=== PATIENT | female | born 1975 | race Caucasian/White ===

== ENCOUNTER 2023-10-13 13:27 | Outpatient (OUT) | payer OTHER, SELFPAY ==
--- NOTE | 2023-10-13 15:42 | P.CN_ITS ---
Consult Note: HPI Data of Consult Patient: new to practice Consult date: 10/13/23 Requesting Physician: Santy Quiros MD Primary Care Provider: LES ABDI Consult Narrative Reason for consult: midback pain Narrative: 48yof who presents for evaluation. worsening midback pain that began acutely while doing her hair at home. history of scoliotic bassam placement as youth. recent imaging suggests fracture of bassam around t6-7 area. tender to palpation over this region. has been taking various pain medications for about a year now, without significant benefit. was engaged in physical therapy, but this was discontinued by therapist due to acute worsening of pain. otherwise denies adverse med side effects. cc:: CC: Santy Quiros MD Review of Systems ROS Status of ROS 10 or more systems reviewed and unremark able except as noted in history and below Exam Narrative Exam Narrative: Psych-alert and oriented x 3. Attentive and appropriate, constitutionally normal, displays normal mood and affect per situation.? There are no obvious deficits in memory, reasoning, or intellect.? Skin-no obvious rashes, bruising, erythema noted to the patient's area of pain. Extremities- extremities are warm with minimal edema and palpable pulses. Thoracic - tenderness to palpation noted in the thoracic spine and paraspinal musculature.?Radiating pain laterally along T6, T7 dermatomal distribution. Pain is elicited with extension, and lateral rotation of the lumbar spine. Range of motion is slightly diminished with these motions due to pain. Coordination remains intact.? Gait remains non-antalgic. Assessment and Plan Assessment and Plan (1) Thoracic radiculopathy: (2) Myofascial pain: Plan 48yof who presents for evaluation. failed conservative measures, as noted. imaging reviewed. given symptoms and imaging, prudent to attempt bilateral T6-7 tfesi under fluoscopic guidance. she is in agreement. medications reviewed, no changes. will continue meds from her pcp. follow up after procedure.
== END 2023-10-13 13:28 | disposition home or self-care (01) ==
LOC: PM 13:27
PROVIDERS: PCP Family Medicine; Visit Provider Anesthesiology
DX: M54.14 Radiculopathy, thoracic region (principal); M79.18 Myalgia, other site
CPT/HCPCS: G0463

== ENCOUNTER 2023-10-15 11:26 | Outpatient (OUT) | payer OTHER, SELFPAY ==
--- NOTE | 2023-10-15 11:29 | MM_ITS ---
Patient Name: LUCILLE BAILEY MR#: [id number] : 1975 Exam Date: 10/15/2023 Ordering Doctor: DR LES ABDI M.D. RADIOLOGY REPORT PROCEDURE: MM TOMOSYNTHESIS SCREENING BI COMPARISON: MG MAMM RT DIAG W CAD, 08/26/2019. MG MAMM RT DIAG FU, 01/28/2019. MG MAMM SCREEN NORMA W CAD, 01/25/2019. INDICATIONS: screening Calculator Name NCI Breast Cancer Risk Assessment Tool 5 Year Breast Cancer Risk 0.90% Lifetime Breast Cancer Risk 8.60% Personal Breast Cancer No Personal Ovarian Cancer No Treatments None Family Cancers Cousin-paternal with breast cancer at age 36; Aunt-maternal with breast cancer at age 58; Father with bladder cancer at age 58. LOCATION: [facility] BREAST COMPOSITION: The breasts are heterogeneously dense,which may obscure small masses. FINDINGS: DIAGNOSTIC CATEGORY 1--NEGATIVE. RIGHT BREAST: No significant suspicious finding. No significant change has occurred. LEFT BREAST: No significant suspicious finding. No significant change has occurred. RECOMMENDATIONS: ROUTINE MAMMOGRAM AND CLINICAL EVALUATION IN 12 MONTHS. PLEASE NOTE: A NORMAL MAMMOGRAM DOES NOT EXCLUDE THE POSSIBILITY OF BREAST CANCER. A CLINICALLY SUSPICIOUS PALPABLE LUMP SHOULD BE BIOPSIED. Dictated by: Honorio Amos M.D. on 10/16/2023 at 15:54 Approved by: Honorio Amos M.D. on 10/16/2023 at 15:57
== END 2023-10-15 11:27 | disposition home or self-care (01) ==
LOC: MAMMO 11:26
PROVIDERS: PCP Family Medicine; Visit Provider Family Medicine
DX: Z12.31 Encounter for screening mammogram for malignant neoplasm of breast (principal); Z80.3 Family history of malignant neoplasm of breast; Z80.52 Family history of malignant neoplasm of bladder
CPT/HCPCS: 77063; 77067

== ENCOUNTER 2023-11-03 11:34 | Outpatient (OUT) | payer OTHER, SELFPAY ==
--- OUTSIDE RECORDS SUMMARY | 2023-11-03 11:56 | XMS_ITS | CCD ---
Author Organization [facility] Care Team Providers Care Tank Car Repairer Name Role Phone FADY ABDI Admitting Unavailable FADY ABDI Attending Unavailable FADY ABDI Primary Care Unavailable FADY ABDI Consulting Unavailable HONORIO AMOS Consulting Unavailable TAWANA KELLEY Admitting Unavailable TAWANA KELLEY Attending Unavailable TAWANA KELLEY Consulting Unavailable MD Fady Abdi Primary Care Provider DO Jack Noel Emergency Provider Unavai lable Unavailable Primary Care Provider UnavailFady Joel Primary Care Unavailable aJck Noel Attending Unavailable Jack Noel Admitting Unavailable Unavailable Primary Care Provider Unavailabl e PELLE, RAMIRO W Referring Unavailable PELLE, RAMIRO W Referring Unavailable STACY HWANG Referring Unavailable KARLA FERNANDEZINIC Attending Unavailable FADY ABDI Referring Unavailable FADY ABDI Attending Unavailable FADY ABDI Attending Unavailable Ishaan VELAZCO, Santy Longo Attending Unavailable Allergies Allergy Classification Reported Allergen(s) Allergy Type Date of Onset Reaction(s) Facility (3 sources) egg extract; Translations: [EGG] Drug Allergy 6 Hives [facility] Repository (3 sources) Latex; Translations: [LATEX] Drug allergy (disorder) 6 Rash [facility] Repository (1 source) Meperidine Drug Allergy 6 [facility] Repository (5 sources) Meperidine; Translations: [meperidine] Drug Allergy 6 Swelling, Other: See Comments [facility] (1 source) egg extract Drug Allergy 2 [facility] (1 source) Latex Drug allergy (disorder) 2 [facility] Repository (2 sources) egg extract Drug Allergy 6 Hives, Unknown, Vomiting [facility] (2 sources) Latex Drug Allergy 6 Itching, Rash, Swelling, Other: See Comments [facility] (3 sources) Atropine-Demerol ; Translations: [ATROPINE-DEMERO L] Drug Allergy 2 Rash, Swelling [facility] Medications Current Medications Medication Drug Class(es) Dates Sig (Normalized) Sig (Original) predniSONE 5 mg oral tablet (1 source) Start: 04-08-2022 Prednisone Active 0 PO .COMPLEX April 08, 2022 12:00am prednisone 5 mg: take 8 tablets (40 mg) on Day 1; 7 tablets (35 mg) on Day 2; then decrease by 1 tablet every day until finished Completed/Discontinued Medications Medication Drug Class(es) Dates Sig (Normalized) Sig (Original) acetaminophen 325 mg / oxyCODONE hydrochloride 7.5 mg oral tablet (2 sources) Opioid Agonist Start: 05-06-2022 take 1 tablet by mouth every six hours as needed oxyCODONE-acetamino phen (PERCOCET) 7.5-325 mg tablet Take 1 tablet by mouth every 6 hours as needed. 0 05/06/2022 Active Comment on above: Take 1 tablet by liana every 6 hours as needed. ALPRAZolam 0.5 mg oral tablet (2 sources) Benzodiazepine Start: 04-15-2022 take 1 tablet by mouth every twelve hours as needed ALPRAZolam (XANAX) 0.5 mg tablet Take 0.5 mg by mouth twice daily as needed. 0 04/15/2022 Active Comment on above: Take 0.5 mg by mouth twice daily as needed. cyclobenzaprine hydrochloride 5 mg oral tablet (3 sources) Muscle Relaxant Start: 04-08-2022 cyclobenzaprine (FLEXERIL) 5 mg tablet Take 5 mg by mouth as needed. 0 04/08/2022 Active Comment on above: Take 5 mg by mouth a s needed. gabapentin 100 mg oral capsule (2 sources) Anti-epileptic Agent Start: 04-15-2022 take 1 capsule by mouth three times daily gabapentin (NEURONTIN) 100 mg capsule Take 100 mg by mouth three times daily. 0 04/15/2022 Active Comment on above: Take 100 mg by mouth three times daily. rizatriptan 10 mg oral tablet (2 sources) Serotonin-1b and Serotonin-1d Receptor Agonist Start: 04-06-2019 rizatriptan (MAXALT) 10 mg tablet Problems Active Problems Problem Classification Problem Date Documented Date Episodic/Chronic Spondylosis; intervertebral disc disorders; other back problems (2 sources) Degeneration of lumbar intervertebral disc; Translations: [Other intervertebral disc degeneration, lumbar region] Onset: 05-14-2022 Chronic Spondylosis; intervertebral disc disorders; other back problems (5 sources) Backache; Translations: [Dorsalgia, unspecified] Onset: 04-08-2022 04-08-2022 Episodic Substance-related disorders (1 source) Nicotine dependence, unspecified, uncomplicated; Translations: [NICOTINE DEPEND UNS UNCOMPLICATED] Onset: 08-27-2019 Chronic Unclassified (2 sources) Equipment error/failure; Translations: [Hardware failure] 04-08-2022 Past or Other Problems Problem Classification Problem Date Documented Da te Episodic/Chronic Nonmalignant breast conditions (4 sources) Other signs and symptoms in breast; Translations: [OTHER SIGNS AND SYMPTOMS IN BREAST] Onset: 08-26-2019 Episodic Results Test Name Value Interpretation Reference Range Facility [facility] 06-20-2022 [facility] Telephone (NIQ) LUCILLE CARCAMO ([id number]) 1975 F Date Time Provider Department 06/20/22 RAMIRO FERNANDEZ NI During your visit today, we recorded the following information about you: Amber Whelan Director Of Operations For Therapy 06/20/2022 3:02 PM Signed Patient calling for MRI AND XR results. Patient informed that it can take 7 business days to review and that someone from the clinical team will call with results once reviewed. call back [phone] Verified imaging and reports were received. Forwarded to team for review. Amber Whelan Director Of Operations For Therapy Sonja Vargas Director Franchise Sales 06/26/2022 1:34 PM Signed pt following up on 06/20 message about results. Call back: [phone] Kingston Moya RN 06/26/2022 3:19 PM Signed Neuro SPINE CARE COORDINATION QUICK NOTE Returned call and left message for pt to call back. Dr Fernandez is out of the office this week. Image review will be competed upon his return next week. Maddi Wood PA-C 07/09/2022 7:42 AM Signed Addended by: MADDI WOOD on: 07/09/2022 07:42 AM Modules accepted: Orders Kingston Moya RN 07/09/2022 8:56 AM Signed Neuro SPINE CARE COORDINATION QUICK NOTE Called patient to provide image review: MRI looks ok. Dr. Fernandez would like her to get an EMG. If it shows any radiculopathy that matches her symptoms, would consider and injection depending on EMG results. overall the imaging looks ok Patient voiced understanding. Advised EMG order was placed and she can call to schedule. She had no further questions. Allergies As of Date: 06/20/2022 Noted Allergy Reaction ATROPINE-DEMEROL 05/14/2022 2 - Rash 7 - Swelling EGG 10/05/2015 4 - Hives 16 - Unknown 11 - Vomiting LATEX 10/05/2015 9 - Itching 2 - Rash 7 - Swelling 14 - Other: See Comments MEPERIDINE 10/05/2015 7 - Swelling 14 - Other: See Comments Date Reviewed: 05/14/2022 Reviewed by: Noemi Morgan LPN - Fully Assessed Reason for Visit: Results [95] Primary Visit Diagnosis:Cervical disc disorder with radiculopathy [M50.10] Order(s):EMG(NEURO/N I) [[id number]] Order #: [id number]: 1 FUTURE Prescriptions as of 07/09/2022 - ALPRAZolam (XANAX) 0.5 mg tablet Take 0.5 mg by mouth twice daily as needed. - cyclobenzaprine (FLEXERIL) 5 mg tablet Take 5 mg by mouth as needed. - gabapentin (NEURONTIN) 100 mg capsule Take 100 mg by mouth three times daily. - oxyCODONE-acetaminop hen (PERCOCET) 7.5-325 mg tablet Take 1 tablet by mouth every 6 hours as needed. - rizatriptan (MAXALT) 10 mg tablet Problem List As Of Date: 06/20/2022 (None) Encounter Status:Closed by KINGSTON MOYA on 06/26/[address] [facility] 05-29-2022 [facility] HNO ID: [id number] Author: Phil Murdock Service: Radiology Author Type: Technologist Type: Allied [facility] Filed: 05/29/2022 6:01 PM Note Text: Radiology Service Progress Note PATIENT NAME: Lucille Carcamo DATE OF SERVICE: May 29, 2022 TIME: 5:50 PM PATIENT IDENTITY VERIFICATION COMPLETED USING TWO (2) IDENTIFIERS: Name and Date of confirmed by patient verbally and Name and Date of confirmed by identification band. FALL SCREENING: Has the patient had 2 falls in the last year or 1 fall with injury or currently using an Ambulatory Assistive Device (Walker, Cane, Wheelchair, Crutches, etc.)? No PATIENT GENDER DATA: Female. status: : No status: NO. PATIENT RELEVANT IMPLANT DATA REVIEWED: Yes RADIOLOGY DEPARTMENT: MR; Exam(s) Completed: Spine: Cervical spine PERIPHERAL IV DATA: Not applicable SIGNED BY: Phil Murdock May 29, 2022 5:50 PM [facility] MRI CERVICAL SPINE WO IVCONo n 05-29-2022 MRI CERVICAL SPINE WO IVCON * * *Final Report* * * DATE OF EXAM: May 29 2022 6:09PM [facility] 0297 - MRI CERVICAL SPINE WO IVCON / PROCEDURE REASON: Spinal stenosis of cervical region * * * * Physician Interpretation * * * * EXAMINATION: MRI CERVICAL SPINE WO IVCON CLINICAL HISTORY: Stenosis TECHNIQUE: Routine cervical spine MR protocol without gadolinium. MQ: [id number] COMPARISON: None. RESULT: Counting reference: Craniocervical junction. Anatomic Variants: None. Localizer images: No additional findings Alignment: Alignment is anatomic. Craniocervical junction: Craniocervical junction is normal. Cord: The visualized cord is within normal limits of signal intensity and morphology. Bone marrow signal/fracture: No evidence of pathologic marrow infiltration. No evidence of prior fracture. Cervical soft tissues: The paraspinal soft tissues are within normal limits. C2-C3: Canal and foramina are patent. C3-C4: Canal and foramina are patent. C4-C5: Canal is patent, mild right foraminal narrowing C5-C6: Canal is patent, mild bilateral foraminal narrowing C6-C7: Canal and foramina are patent. C7-T1: Canal and foramina are patent. IMPRESSION: 1. NO SIGNIFICANT CENTRAL OR FORAMINAL NARROWING 2. NO SUSPICIOUS CORD SIGNAL ABNORMALITY Anatomic Variant: None. Assume 7 cervical vertebrae with counting from the craniocervical junction. Brick Kiln Burner: [facility] Transcribe Date/Time: May 29 2022 9:21P Dictated by : ARMEN MELÉNDEZ MD This examination was interpreted and the report reviewed and electronically signed by: ARMEN MELÉNDEZ MD on May 29 2022 9:22PM EST [id number] [facility] XR CERVICAL 4V AP/LAT/FLX/EX Ton 05-29-2022 XR CERVICAL 4V AP/LAT/FLX/EXT * * *Final Report* * * DATE OF EXAM: May 29 2022 5:37PM [facility] [id number] - XR CERVICAL 4V AP/LAT/FLX/EXT / PROCEDURE REASON: Spinal stenosis of cervical region * * * * Physician Interpretation * * * * EXAMINATION: XR CERVICAL 4V AP/LAT/FLX/EXT PATIENT/TECHNOLOGIST PROVIDED HISTORY: The patient is having pain. CLINICAL INFORMATION ( PROVIDED BY ORDERING CLINICIAN) : Spinal stenosis of cervical region TECHNIQUE: XR CERVICAL 4V AP/LAT/FLX/EXT Laterality: NOT APPLICABLE Number of different views (projections): 4 M: XB_1 COMPARISON: None RESULT: Counting reference: Craniocervical junction. Straightening of the normal cervical lordosis with 1 to 2 mm retrolisthesis at C2-3 which reduces with extension and does not change with flexion. Vertebral body heights and disc spaces are preserved. Facet joints are maintained. No other significant abnormality. IMPRESSION: No acute osseous findings. Additional findings as described. Brick Kiln Burner: [facility] Transcribe Date/Time: May 30 2022 8:22A Dictated by : DAIN MARTINEZ MD This examination was interpreted and the report reviewed and electronically signed by: DAIN MARTINEZ MD on May 30 2022 8:24AM EST [id number] [facility] CNOVon 05-14-2022 CNOV Office Visit (SPNSMN) LUCILLE CARCAMO ([id number]) 1975 F Date Time Provider Department 05/14/22 9:10 AM RAMIRO FERNANDEZ During your visit today, we recorded the following information about you: Pulse Respiration Blood pressure Weight 76/minute 13/minute 110/78 79.8 kg Height 1.6 m Ramiro Fernandez MD 05/14/2022 12:25 PM Signed SPINE SURGERY NEW PATIENT Staff note: Interscapular pain of one month duration, no inciting injury, left side, some left arm numbness Remote history of AIS surgery in 80s Gomez fracture on left noted on recent xr CT scan demonstrates well healed fusion Examination Positive hoffmans bilaterally Positive spurlings 5/5 motor strength Plan MRI cervical spine Xr cervical spine I don't think the gomez fracture is the issue, she has a history c/w cervical radiculopathy FU thereafter I had a long discussion with the patient in the office today, they had many appropriate questions, all were answered to their satisfaction, no guarantees were offer nor implied in our discussion. Ramiro Fernandez MD PCP: No primary care provider on file. REFERRING PROVIDER: n/a SUBJECTIVE HISTORY OF PRESENT ILLNESS: Lucille Carcamo is a 46 year old female presenting with her spouse and son. CHIEF COMPLAINT: mid back pain PRECIPITATING EVENT: None DURATION OF SYMPTOMS: one month ago curling her hair and felt a sharp shooting burning pain in her mid back. Has tried ibuprofen but it does not touch the pain but makes it tolerable, uses heat as well. Went to PCP who took xray PAIN EVALUATION 05/14/2022 0832 Pain Level: 9 Pain Location: Back-Upper Description: Burning;Stabbing Duration Amount of Time: 1 Duration Units: Months Frequency: Continuous Intervention/Comfort measure: Medication;Heat Pain Radiation: central mid back between shoulder blades Aggravating Factors: Lifting, Pushing, Standing, Walking Alleviating Factors: None Pain Ratio: mid upper back pain only AMBULATORY STATUS: Independent Community Distances PREVIOUS CONSERVATIVE TREATMENTS: Percocet Oral Steroids MR NSAIDs Gabapentin PREVIOUS SPINAL SURGERY: Prior surgery 1980s There is no problem list on file for this patient. No past medical history on file. No past surgical history on file. No family history on file. Social History Tobacco Use Smoking status: Every Day Types: Cigarettes Smokeless tobacco: Never Substance Use Topics Alcohol use: Never ALLERGIES Allergen Reactions Atropine-Demerol Rash, Swelling Egg Hives, Unknown, Vomiting Latex Itching, Rash, Swelling, Other: See Comments Meperidine Swelling, Other: See Comments MEDICATIONS: ALPRAZolam (XANAX) 0.5 mg tablet Take 0.5 mg by mouth twice daily as needed. cyclobenzaprine (FLEXERIL) 5 mg tablet Take 5 mg by mouth as needed. gabapentin (NEURONTIN) 100 mg capsule Take 100 mg by mouth three times daily. oxyCODONE-acetaminop hen (PERCOCET) 7.5-325 mg tablet Take 1 tablet by mouth every 6 hours as needed. rizatriptan (MAXALT) 10 mg tablet REVIEW OF SYSTEMS: GENERAL: No weight loss or malaise MUSCULOSKELETAL: Negative for joint pain, swelling or muscle pain NEURO: No history of headaches, syncope, paralysis, seizures or tremors Patient Entered Questionnaires Spine Questions 05/13/2022 Pain Location: Upper back/torso Pain Duration: 1-3 months Symptoms from neck/cervical spine: Yes Employment Status: Disabled due to back pain, permanently or temporarily Off work 1 month or more due to back/neck pain: Yes Applied for/receive disability/WC due to low back/neck pain No Involved in law suit/legal claim: No Neck Questionnaires 05/13/2022 [place]zel Modified ALEXIS Score 14 (A lower score indicates increased pain and issues.) PROMIS Score Percentiles Physical Health 05/13/2022 Physical Function Percentile 2 Sleep Percentile 10 Fatigue Percentile 50 Pain Interference Percentile 0 PROMIS SOCIAL ROLE SCORE 05/13/2022 Social Role Satisfaction Percentile 1 PROMIS Global Health Scale 05/13/2022 Physical Health Percentile 4 Mental Health Percentile 5 Percentiles provide an indication of how the patient's score ranks in relation to the general population. Higher percentile rankings indicate better function/quality of life. 50th percentile is the average of the general population and indicates half of respondents had a worse score. Depression Screening: PHQ-9 05/13/2022 Score 12 PHQ-9 Self-harm Question 05/13/2022 Thoughts that you would be better off , or of hurting yourself in some way 0 PHQ-9 Self-Harm (Item 9) response options: 0 Not at all 1 Several days 2 More than half the days 3 Nearly every day PHQ-9 Levels: 0-4 No to mild depression 5-9 Mild depression 10-14 Moderate depression 15-19 Moderately severe depression 20-27 Severe depression OBJECTIVE: PHYSICA (more content not included)... [facility] XR SCOLIOSIS 2V PA STAND/LAT on 05-14-2022 XR SCOLIOSIS 2V PA STAND/LAT * * *Final Report* * * DATE OF EXAM: May 14 2022 7:56AM PHILLIP [id number] - XR SCOLIOSIS 2V PA STAND/LAT / PROCEDURE REASON: Degeneration of lumbar intervertebral disc * * * * Physician Interpretation * * * * HISTORY: Degeneration of lumbar intervertebral disc TECHNOLOGIST PROVIDED HISTORY (if applicable): degeneration of lumbar intervertebral disc TECHNIQUE: XR SCOLIOSIS 2V PA STAND/LAT RESULT: Scoliosis series, 2 stitched views. Counting reference: Lumbosacral junction. For the purposes of this report, L5-S1 is considered the most caudal well formed disc space. Iliac crests are at the L4-5 level. Anatomic variant: T7 RIGHT hemivertebra with 12 RIGHT and 11 LEFT ribs (better visualized on outside CT scan 04/08/2022). Bony detail is limited. There has been posterior decompression and fusion between T4 and T10 with bilateral rods, laminar hook's and cerclage wires. The right-sided gomez is fractured at the T6-7 level. The hardware otherwise appears intact. There is scoliosis with apex rightward curvature centered on the hemivertebra measuring approximately 36 degrees between T6 and T11 and levocurvature of 23 degrees between T11 and L2. In the sagittal plane, there is neutral balance with mild straightening of the cervical lordosis, mildly accentuated midthoracic kyphosis, and preserved lumbar lordosis. No definite subluxation. Mild degenerative changes are present from T10-11 distal. IMPRESSION: SCOLIOSIS WITH UNDERLYING MIDTHORACIC HEMIVERTEBRA. FAILED RIGHT FUSION GOMEZ. MILD DEGENERATIVE CHANGES. ANATOMIC VARIANT: T7 RIGHT HEMIVERTEBRA WITH 12 RIGHT AND 11 LEFT RIBS (BETTER VISUALIZED ON OUTSIDE CT SCAN 04/08/2022). Brick Kiln Burner: [facility] Transcribe Date/Time: May 14 2022 8:02A Dictated by : ARMEN DAVIS MD This examination was interpreted and the report reviewed and electronically signed by: ARMEN DAVIS MD on May 14 2022 8:10AM EST [id number] [facility] US Pelvic, Transabdominalon 04-17-2022 US Pelvic, Transabdominal HISTORY: Total hysterectomy 2007. Recent outside CT demonstrating a left adnexal cyst. FINDINGS: Sonographic evaluation was performed with a transabdominal approach, patient tender upon examination and preferring not to have non-transvaginal approach. Clearly seen on the transabdominal images is a left adnexal benign cyst, 3.5 x 6.5 x 4.0 cm. No abnormal vascularity or shadowing or soft tissue component. No neighboring fluid. No evidence of neighboring bowel obstruction. Unremarkable vaginal cuff. IMPRESSION: 1. Benign appearing left hemipelvic cyst, diagnostic considerations include a benign left ovarian cyst (if the left ovary was not removed) versus a benign seroma/lymphocele. COMMENT: If symptoms persist following appropriate medical management, CT imaging maybe of assistance with oral and IV contrast. Report reported and signed by Dom Vasquez on 04/17/2022 1127 Normal [facility] CT lumbar spine wo conon CT lumbar spine wo [place] [address] CT Scan Report Signed Patient: Lucille Carcamo MR#: [id number] : 1975 Acct:[id number] Age/Sex: 46 / F ADM Date: 04/08/22 Loc: ER Room: Type: [facility] ER Attending Dr: Copies to: DO Jack Servin DO Ordering Provider: Sandoval Kirby DO Date of Service: 04/08/22 CT/CT lumbar spine wo con: fx gomez? ([id number]) CT/CT thoracic spine wo con: fx gomez? CT thoracic spine wo con, CT lumbar spine wo con 04/08/2022 5:05 PM History: Left upper back pain, possible hardware failure, history of scoliosis. TECHNIQUE: Multi detector CT axial slices of the thoracolumbar spine were obtained without IV contrast. Volumetric acquisition sagittal, coronal, and 3-D reconstructions were performed and reviewed on a separate workstation. CT was performed with one or more of the following dose reduction techniques: Automated exposure control, adjustment of the mA and/or kV according to patient size, or use of iterative reconstruction technique. COMPARISON: None FINDINGS: Thoracic spine CT: There is a dextro convex curvature of the thoracic spine with a right-sided hemivertebra at the T6- T7 intervertebral level. There has been Holloway gomez fixation. No definite CT evidence of failure of the Holloway rods. However, the previous radiographs are not available for review at the time of this dictation. Holloway rods extend from T4 through T9. There is partial fusion across intervertebral discs throughout these levels. There is preservation of the vertebral body heights. No fractures or dislocations are seen. The paraspinous soft tissues are within normal limits. The visualized lung parenchyma is unremarkable. The visualized upper abdominal viscera is unremarkable. Lumbar spine CT: There is preservation of the vertebral body heights. There is mild disc height loss at L4-5 and L5-S1. No fractures or dislocations are seen. The alignment of the lumbar spine is normal. The paraspinous soft tissues are within normal limits. The visualized lung parenchyma is unremarkable. Atherosclerotic changes are noted in the abdominal aorta and common iliac arteries. There is a 4.4 cm x 6.4 cystic structure in the left adnexa without evidence of prior hysterectomy. Mild degenerative changes are noted in the sacroiliac joints. CT/CT thoracic spine wo con IMPRESSION: Thoracic spine: No acute bony abnormality. There is a dextro convex curvature of the thoracic spine with a right-sided hemivertebra at the T6- T7 intervertebral level. There has been Holloway gomez fixation. No definite CT evidence of failure of the Holloway rods. However, the previous radiographs are not available for review at the time of this dictation. Lumbar spine: There is mild intervertebral disc height loss at L4-L5 and S1. There is no fracture or subluxation. Mild sacroiliac joint degenerative changes are noted bilaterally. There is a 4.4 cm x 6.4 cystic structure in the left adnexa without evidence of prior hysterectomy. Impression dictated by: Bacilio Rosas M.D.04/08/2022 6:37 PM Dictation Location: [place] [address] Transcribed By: [facility] 04/08/221836 Dictated By: Bacilio Rosas II, MD 04/08/221820 Signed By: 04/08/221836 Normal [facility] XR Spine Thoracic 2 Views*on 04-08-2022 XR Spine Thoracic 2 Views* FINDINGS: Mid thoracic scoliotic rods (T4 - T10), chronic end plate fusion. No osseous fracture. Interruption of the right scoliotic gomez just distal to the 3rd proximal pedicle anchor. This may represent an acute process given the absence of prior films for stability. Unremarkable paravertebral soft tissues. IMPRESSION: Fractured right scoliotic gomez, minimal distraction, no osseous fracture. Age of this is indeterminate, possibly acute given the appropriate clinical presentation. Report reported and signed by Dom Vasquez on 04/08/2022 1458 Normal [facility] COVID-19 PCRon 03-14-2020 SARS-CoV-2, MACIEL Not Detected Normal Not Detected [facility] Comment on above: Result Comment: This nucleic acid amplification test was developed and its performance characteristics determined by [employer]. Nucleic acid amplification tests include PCR and TMA. This test has not been FDA cleared or approved. This test has been authorized by FDA under an Emergency Use Authorization (EUA). This test is only authorized for the duration of time the declaration that circumstances exist justifying the authorization of the emergency use of in vitro diagnostic tests for detection of SARS-CoV-2 virus and/or diagnosis of COVID-19 infection under section 564(b)(1) of the Act, 21 U.S.C. 360bbb-3(b) (1), unless the authorization is terminated or revoked sooner. When diagnostic testing is negative, the possibility of a false negative result should be considered in the context of a patient's recent exposures and the presence of clinical signs and symptoms consistent with COVID-19. An individual without symptoms of COVID-19 and who is not shedding SARS-CoV-2 virus would expect to have a negative (not detected) result in this assay. Performed By: #### C VDPCR #### [facility] [address] [place], [place] [id number] Rae Goldberg MG MAMM RT DIAG W CADon 03-0 MG MAMM RT DIAG W CAD Patient: LUCILLE CARCAMO Exam Date: 08/26/2019 : 1975 Gender:F Ordering : DR FADY ABDI M.D. Admission #: [id number] Family : Order #: [id number] CLICK HERE TO VIEW EXAM RADIOLOGY REPORT PROCEDURE: MAMMOGRAM DIAGNOSTIC DIGITAL WITH COMPUTER AIDED DETECTION, 08/26/2019, 08:59 ULTRASOUND BREAST RIGHT LIMITED, 08/26/2019, 09:02 COMPARISON: MG MAMM SCREEN NORMA W CAD, 01/25/2019. MG MAMM RT DIAG FU, 01/28/2019. INDICATIONS: Non-healing wound right breast Calculator Name NCI Breast Cancer Risk Assessment Tool 5 Year Breast Cancer Risk 1.00% Lifetime Breast Cancer Risk 9.20% Personal Breast Cancer No Personal Ovarian Cancer No Treatments None Family Cancers Cousin-paternal with breast cancer at age 36; Aunt-maternal with breast cancer at age 58; Father with bladder cancer at age 58. LOCATION: [facility] BREAST COMPOSITION: Heterogeneously dense, which may obscure small masses. FINDINGS: DIAGNOSTIC CATEGORY 2--BENIGN FINDING: RIGHT BREAST: A skin surface marker over the anterior lower breast approximately 6:00 localizes a skin surface sore; no underlying mammographic abnormality or suspicious findings. Stable asymmetric fibroglandular tissue within the posterior upper inner quadrant. Ultrasound evaluation in the region the sore demonstrates normal underlying fibroglandular tissue. No appreciable skin thickening or suspicious findings. RECOMMENDATIONS: ROUTINE MAMMOGRAM AND CLINICAL EVALUATION IN 12 MONTHS. CLINICAL EVALUATION. PLEASE NOTE: A NORMAL MAMMOGRAM DOES NOT EXCLUDE THE POSSIBILITY OF BREAST CANCER. A CLINICALLY SUSPICIOUS PALPABLE LUMP SHOULD BE BIOPSIED. Dictated by: Honorio Amos M.D. on 08/26/2019 at 14:31 Approved by: Honorio Amos M.D. on 08/26/2019 at 14:50 Normal [facility] US BREAST RIGHT LIMITEDon US BREAST RIGHT LIMITED Patient: LUCILLE CARCAMO Exam Date: 08/26/2019 : 1975 Gender:F Ordering : DR FDAY ABDI M.D. Admission #: [id number] Family : Order #: [id number] CLICK HERE TO VIEW EXAM RADIOLOGY REPORT PROCEDURE: MAMMOGRAM DIAGNOSTIC DIGITAL WITH COMPUTER AIDED DETECTION, 08/26/2019, 08:59 ULTRASOUND BREAST RIGHT LIMITED, 08/26/2019, 09:02 COMPARISON: MG MAMM SCREEN NORMA W CAD, 01/25/2019. MG MAMM RT DIAG FU, 01/28/2019. INDICATIONS: Non-healing wound right breast Calculator Name NCI Breast Cancer Risk Assessment Tool 5 Year Breast Cancer Risk 1.00% Lifetime Breast Cancer Risk 9.20% Personal Breast Cancer No Personal Ovarian Cancer No Treatments None Family Cancers Cousin-paternal with breast cancer at age 36; Aunt-maternal with breast cancer at age 58; Father with bladder cancer at age 58. LOCATION: [facility] BREAST COMPOSITION: Heterogeneously dense, which may obscure small masses. FINDINGS: DIAGNOSTIC CATEGORY 2--BENIGN FINDING: RIGHT BREAST: A skin surface marker over the anterior lower breast approximately 6:00 localizes a skin surface sore; no underlying mammographic abnormality or suspicious findings. Stable asymmetric fibroglandular tissue within the posterior upper inner quadrant. Ultrasound evaluation in the region the sore demonstrates normal underlying fibroglandular tissue. No appreciable skin thickening or suspicious findings. RECOMMENDATIONS: ROUTINE MAMMOGRAM AND CLINICAL EVALUATION IN 12 MONTHS. CLINICAL EVALUATION. PLEASE NOTE: A NORMAL MAMMOGRAM DOES NOT EXCLUDE THE POSSIBILITY OF BREAST CANCER. A CLINICALLY SUSPICIOUS PALPABLE LUMP SHOULD BE BIOPSIED. Dictated by: Honorio Amos M.D. on 08/26/2019 at 14:31 Approved by: Honorio Amos M.D. on 08/26/2019 at 14:50 Normal [facility] Vital Signs Date Time Vital Sign Value Performing Clinician Faci tutu 05-14-2022 08:29-0500 Body height 160 cm Ramiro Fernandez MD Work Phone: [facility] 05-14-2022 08:29-0500 Body weight 79.83 kg Ramiro Fernandez MD Work Phone: [facility] 05-14-2022 08:29-0500 Diastolic blood pressure 78 mm[Hg] Ramiro Fernandez MD Work Phone: [facility] 05-14-2022 08:29-0500 Heart rate 76 /min Ramiro Fernandez MD Work Phone: [facility] 05-14-2022 08:29-0500 Respiratory rate 13 /min Ramiro Fernandez MD Work Phone: [facility] 05-14-2022 08:29-0500 SaO2% (BldA) [Mass fraction] 100 % Ramiro Fernandez MD Work Phone: [facility] 05-14-2022 08:29-0500 Systolic blood pressure 110 mm[Hg] Ramiro Fernandez MD Work Phone: [facility] 04-08-2022 18:47-0400 Diastolic blood pressure 72 mm[Hg] MD Fady Abdi Work Phone: [facility] 04-08-2022 18:47-0400 Heart rate 85 /min MD Fady Abdi Work Phone: [facility] 04-08-2022 18:47-0400 Respiratory rate 18 /min MD Fady Abdi Work Phone: [facility] 04-08-2022 18:47-0400 SaO2% (BldA) [Mass fraction] 98 % MD Fady Abdi Work Phone: [facility] 04-08-2022 18:47-0400 Systolic blood pressure 125 mm[Hg] MD Fady Abdi Work Phone: [facility] 04-08-2022 16:41-0400 Body height 160.02 cm MD Fady Abdi Work Phone: [facility] 04-08-2022 16:41-0400 Body temperature 97.9 [degF] MD Fady Abdi Work Phone: [facility] 04-08-2022 16:41-0400 Body weight 78.3 kg MD Fady Abdi Work Phone: [facility] Encounters Encounter Date Encounter Type Care Provider Facility Start: 10-13-2023 End: 10-14-2023 ambulatory Santy Quiros MD Facility: [facility] Start: 10-06-2023 End: 10-06-2023 ambulatory FADY ABDI Not Available Start: 06-10-2023 End: 06-10-2023 ambulatory FADY ABDI Not Available Start: 06-20-2022 Telephone encounter Ramiro lam MD Work Phone: Neurology Comment on above: Results Start: 05-29-2022 ambulatory RAMIRO FERNANDEZ Facilit y:[facility] Start: 05-14-2022 End: 05-14-2022 ambulatory RAMIRO FERNANDEZ Facility:[facility] Start: 05-14-2022 End: 05-14-2022 Patient encounter procedure Ramiro Fernandez MD Work Phone: [facility] [place] Comment on above: Spinal stenosis of c ervical region (Primary Dx) Start: 04-16-2022 Chart abstracting Brendan Enrique MD Work Phone: Neurology Start: 04-08-2022 End: 04-08-2022 Emergency department patient visit Velvetaquilino Flores Nayeli Facility:[facility] Start: 04-08-2022 End: 04-08-2022 Emergency department patient visit MD Fady Abdi Work Phone: [facility] Start: 03-13-2020 End: 03-13-2020 Patient encounter procedure TAWANA ALLIE Facility:[facility] Start: 08-26-2019 End: 08-27-2019 Patient encounter procedure FADY ABDI Facility:[facility] Procedures Date Procedure Procedure Detail Performing Clinician Start: 04-08-2022 Computed tomography of thoracic spine without contrast MD Fady Abdi Work Phone: Start: 04-08-2022 CT of lumbar spine without contrast MD Fady Abdi Work Phone: Plan of Treatment Date Care Activity Detail Author Start: 06-23-2022 DEPRESSION ASSESSMENT DEPRESSION ASS ESSMENT [facility] Start: 02-21-2022 Influenza vaccination INFLUENZA (#1) [facility] Start: 06-23-2021 DEPRESSION ASSESSMENT DEPRESSION ASS ESSMENT [facility] Start: 2019 COLOGUARD (FIT-DNA) COLOGUARD (FIT-D NA) [facility] Start: 2019 Colonoscopy COLONOSCOPY [facility] Start: 2019 COLORECTAL CANCER SCREENING COLORECTAL CANCER SCREENING [facility] Start: [address] COLONOGRAPHY [facility] Start: 2019 DIABETES SCREEN DIABETES SCREEN [facility] Start: 2019 FECAL OCCULT BLOOD FECAL OCCULT BLOO D [facility] Start: 2019 LIPID SCREEN LIPID SCREEN [facility] Start: 2019 SIGMOIDOSCOPY SIGMOIDOSCOPY [facility] Start: 2014 Mammography MAMMOGRAM [facility] Start: 2004 HPV TESTING HPV TESTING [facility] Start: 1995 PAP TESTING PAP TESTING [facility] Start: 1993 Urine microalbumin profile DTAP,TDAP,TD (1 - Tdap) [facility] Start: 1992 HEPATITIS C SCREENING HEPATITIS C SC REENING [facility] Start: 1992 HIV SCREENING HIV SCREENING [facility] Start: 1980 PNEUMOCOCCAL (1 - PCV) PNEUMOCOCCAL (1 - PCV) [facility] Start: 02-06-1975 COVID-19 VACCINE (#1) COVID-19 VACCI NE (#1) [facility] Start: 1975 HEPATITIS B (1 of 3 - 3-dose series) HEPATITIS B (1 of 3 - 3-dose series) [facility] End: 06-13-2023 Mri spinal canal cervical w/o contrast matrl MRI CERVICAL SPINE WO IVCON Radiology Routine Spinal stenosis of cervical region 1 Occurrences starting 05/14/2022 until 06/13/2023 [facility] Work Phone: Comment on above: 1 Occurrences starti ng 05/14/2022 until 06/13/2023 Patient Education Scoliosis (DC) [facility] Work Phone: Patient referral [facility] Work Phone: End: 05-18-2023 Radex entir thrc lmbr crv sac spi w/skull 2/3 vw XR SCOLIOSIS PA STAND/LAT 2V Radiology Routine Degeneration of lumbar intervertebral disc 1 Occurrences starting 04/18/2022 until 05/18/2023 [facility] Work Phone: Comment on above: 1 Occurrences starti ng 04/18/2022 until 05/18/2023 End: 06-13-2023 Radex spine cervical 4 or 5 views XR CERV OTHER 4V AP/LAT/FLX/EXT Radiology Routine Spinal stenosis of cervical region 1 Occurrences starting 05/14/2022 until 06/13/2023 [facility] Work Phone: Comment on above: 1 Occurrences starti ng 05/14/2022 until [facility] Payers Date Payer Category Payer Private Health Insurance [id number] 2007 Unknown [employer] PPO OOS [id number] 2007-Present [phone] [address] [place] [address] PPO [id number] 1975 Unknown [id number] 1975 Unknown [id number] 1975 Unknown [id number] 1975 Unknown [id number] 1959 Self-pay 1959 Unknown [id number] Unknown [id number] Unknown [id number] Social History Date Type Detail Facility Start: 04-08-2022 Tobacco smoking status NHIS Smoker (finding) [facility] Start: 1975 Sex Assigned At Female F [facility] Tobacco smoking status UTIS Tobacco smoking consumption unknown [facility] Start: 1975 Sex Assigned At Not on file [facility] Start: 05-14-2022 Tobacco smoking status NHIS Smokes tobacco daily [facility] History of tobacco use Cigarette Smoker [facility] Start: 05-14-2022 Tobacco use and exposure Smokeless tobacco non-user [facility] Start: 05-14-2022 Alcohol intake Lifetime non-d erika (finding) [facility] Start: 05-04-2022 End: 05-14-2022 Exposure to SARS-CoV-2 (event) Not sure [facility] Clinical Notes 04-16-2022 to 06-26-2022 Telephone Encounter - Kingston Moya RN - 06/26/2022 3:18 PM ESTTelephone Encounter - Sonja Vargas Director [employer] - 06/26/2022 1:33 PM Dawna Fernandez MD - 05/14/2022 8:38 AM EST Note Date & Type Note Facility 06-26-2022 Miscellaneous Notes Formattin g of this note might be different from the original. Neuro SPINE CARE COORDINATION QUICK NOTE Returned call and left message for pt to call back. Dr Fernandez is out of the office this week. Image review will be competed upon his return next week. pt following up on 06/20 message about results. Call back: [phone] Patient calling for MRI & XR results. Patient informed that it can take 7 business days to review and that someone from the clinical team will call with results once reviewed. call back [phone] Verified imaging and reports were received. Forwarded to team for review. Amber Whelan Director Of Operations For Therapy documented in this encounter [facility] 05-29-2022 Note HNO ID: [id number] Author: RT Neo(R) Service: ? Author Type: Technologist Type: Progress Notes Filed: 05/29/2022 5:38 PM Note Text: Radiology Service Progress Note PATIENT NAME: Lucille Carcamo DATE OF SERVICE: May 29, 2022 TIME: 5:37 PM PATIENT IDENTITY VERIFICATION COMPLETED USING TWO (2) IDENTIFIERS: Name and Date of confirmed by patient verbally and Name and Date of confirmed by identification band. FALL SCREENING: Has the patient had 2 falls in the last year or 1 fall with injury or currently using an Ambulatory Assistive Device (Walker, Cane, Wheelchair, Crutches, etc.)? No PATIENT GENDER DATA: Female. status: : No status: NO. PATIENT RELEVANT IMPLANT DATA REVIEWED: Not Applicable RADIOLOGY DEPARTMENT: General X-ray: Exam(s) Completed: Spine X-Ray(s): Cervical AP / LAT / FLEX-EXT PERIPHERAL IV DATA: Not applicable SIGNED BY: RT Neo(R) May 29, 2022 5:37 PM [facility] 05-14-2022 Note HNO ID: [id number] Author: Ramiro Fernandez MD Service: ? Author Type: Physician Type: Progress Notes Filed: 05/14/2022 12:25 PM Note Text: SPINE SURGERY NEW PATIENT Staff note: Interscapular pain of one month duration, no inciting injury, left side, some left arm numbness Remote history of AIS surgery in 80s Gomez fracture on left noted on recent xr CT scan demonstrates well healed fusion Examination Positive hoffmans bilaterally Positive spurlings 5/5 motor strength Plan MRI cervical spine Xr cervical spine I don't think the gomez fracture is the issue, she has a history c/w cervical radiculopathy FU thereafter I had a long discussion with the patient in the office today, they had many appropriate questions, all were answered to their satisfaction, no guarantees were offer nor implied in our discussion. Ramiro Fernandez MD PCP: No primary care provider on file. REFERRING PROVIDER: n/a SUBJECTIVE HISTORY OF PRESENT ILLNESS: Lucille Carcamo is a 46 year old female presenting with her spouse and son. CHIEF COMPLAINT: mid back pain PRECIPITATING EVENT: None DURATION OF SYMPTOMS: one month ago curling her hair and felt a sharp shooting burning pain in her mid back. Has tried ibuprofen but it does not touch the pain but makes it tolerable, uses heat as well. Went to PCP who took xray PAIN EVALUATION 05/14/2022 0832 Pain Level: 9 Pain Location: Back-Upper Description: Burning;Stabbing Duration Amount of Time: 1 Duration Units: Months Frequency: Continuous Intervention/Comfort measure: Medication;Heat Pain Radiation: central mid back between shoulder blades Aggravating Factors: Lifting, Pushing, Standing, Walking Alleviating Factors: None Pain Ratio: mid upper back pain only AMBULATORY STATUS: Independent Community Distances PREVIOUS CONSERVATIVE TREATMENTS: Percocet Oral Steroids MR NSAIDs Gabapentin PREVIOUS SPINAL SURGERY: Prior surgery 1980s There is no problem list on file for this patient. No past medical history on file. No past surgical history on file. No family history on file. Social History Tobacco Use Smoking status: Every Day Types: Cigarettes Smokeless tobacco: Never Substance Use Topics Alcohol use: Never ALLERGIES Allergen Reactions Atropine-Demerol Rash, Swelling Egg Hives, Unknown, Vomiting Latex Itching, Rash, Swelling, Other: See Comments Meperidine Swelling, Other: See Comments MEDICATIONS: ALPRAZolam (XANAX) 0.5 mg tablet Take 0.5 mg by mouth twice daily as needed. cyclobenzaprine (FLEXERIL) 5 mg tablet Take 5 mg by mouth as needed. gabapentin (NEURONTIN) 100 mg capsule Take 100 mg by mouth three times daily. oxyCODONE-acetaminophen (PERCOCET) 7.5-325 mg tablet Take 1 tablet by mouth every 6 hours as needed. rizatriptan (MAXALT) 10 mg tablet REVIEW OF SYSTEMS: GENERAL: No weight loss or malaise MUSCULOSKELETAL: Negative for joint pain, swelling or muscle pain NEURO: No history of headaches, syncope, paralysis, seizures or tremors Patient Entered Questionnaires Spine Questions 05/13/2022 Pain Location: Upper back/torso Pain Duration: 1-3 months Symptoms from neck/cervical spine: Yes Employment Status: Disabled due to back pain, permanently or temporarily Off work 1 month or more due to back/neck pain: Yes Applied for/receive disability/WC due to low back/neck pain No Involved in law suit/legal claim: No Neck Questionnaires 05/13/2022 Benzel Modified ALEXIS Score 14 (A lower score indicates increased pain and issues.) PROMIS Score Percentiles Physical Health 05/13/2022 Physical Function Percentile 2 Sleep Percentile 10 Fatigue Percentile 50 Pain Interference Percentile 0 PROMIS SOCIAL ROLE SCORE 05/13/2022 Social Role Satisfaction Percentile 1 PROMIS Global Health Scale 05/13/2022 Physical Health Percentile 4 Mental Health Percentile 5 Percentiles provide an indication of how the patient's score ranks in relation to the general population. Higher percentile rankings indicate better function/quality of life. 50th percentile is the average of the general population and indicates half of respondents had a worse score. Depression Screening: PHQ-9 05/13/2022 Score 12 PHQ-9 Self-harm Question 05/13/2022 Thoughts that you would be better off , or of hurting yourself in some way 0 PHQ-9 Self-Harm (Item 9) response options: 0 Not at all 1 Several days 2 More than half the days 3 Nearly every day PHQ-9 Levels: 0-4 No to mild depression 5-9 Mild depression 10-14 Moderate depression 15-19 Moderately severe depression 20-27 Severe depression OBJECTIVE: PHYSICAL EXAM BP 110/78 Pulse 76 Resp 13 Ht 160 cm (5' 3 ) Wt 79.8 kg (176 lb) SpO2 100% BMI 31.18 kg/m? GENERAL APPEARANCE: Well nourished, well developed, and no apparent distress. NEURO PSYCH: Patient oriented to person, place, and time. Mood pleasant. Benign a (more content not included)... [facility] 05-14-2022 Note HNO ID: [id number] Author: RT Krzysztof(Viv) Service: ? Author Type: Data Processing Clerk Type: Progress Notes Filed: 05/14/2022 7:57 AM Note Text: Radiology Service Progress Note PATIENT NAME: Lucille Carcamo DATE OF SERVICE: May 14, 2022 TIME: 7:57 AM PATIENT IDENTITY VERIFICATION COMPLETED USING TWO (2) IDENTIFIERS: Name and Date of confirmed by patient verbally. FALL SCREENING: Has the patient had 2 falls in the last year or 1 fall with injury or currently using an Ambulatory Assistive Device (Walker, Cane, Wheelchair, Crutches, etc.)? No PATIENT GENDER DATA: Female. status: : No status: NO. PATIENT RELEVANT IMPLANT DATA REVIEWED: Not Applicable RADIOLOGY DEPARTMENT: General X-ray: Exam(s) Completed: Spine X-Ray(s): Scoliosis Series PERIPHERAL IV DATA: Not applicable SIGNED BY: SRIKANTH Blankenship) May 14, 2022 7:57 AM [facility] 05-14-2022 History of Presen t illness Narrative SPINE SURGERY NEW PATIENT Staff note: Interscapular pain of one month duration, no inciting injury, left side, some left arm numbness Remote history of AIS surgery in 80s Gomez fracture on left noted on recent xr CT scan demonstrates well healed fusion Examination Positive hoffmans bilaterally Positive spurlings 5/5 motor strength Plan MRI cervical spine Xr cervical spine I don't think the gomez fracture is the issue, she has a history c/w cervical radiculopathy FU thereafter I had a long discussion with the patient in the office today, they had many appropriate questions, all were answered to their satisfaction, no guarantees were offer nor implied in our discussion. Ramiro Fernandez MD PCP: No primary care provider on file. REFERRING PROVIDER: n/a SUBJECTIVE HISTORY OF PRESENT ILLNESS: Lucille Carcamo is a 46 year old female presenting with her spouse and son. CHIEF COMPLAINT: mid back pain PRECIPITATING EVENT: None DURATION OF SYMPTOMS: one month ago curling her hair and felt a sharp shooting burning pain in her mid back. Has tried ibuprofen but it does not touch the pain but makes it tolerable, uses heat as well. Went to PCP who took xray PAIN EVALUATION 05/14/2022 0832 Pain Level: 9 Pain Location: Back-Upper Description: Burning;Stabbing Duration Amount of Time: 1 Duration Units: Months Frequency: Continuous Intervention/Comfort measure: Medication;Heat Pain Radiation: central mid back between shoulder blades Aggravating Factors: Lifting, Pushing, Standing, Walking Alleviating Factors: None Pain Ratio: mid upper back pain only AMBULATORY STATUS: Independent Community Distances PREVIOUS CONSERVATIVE TREATMENTS: Percocet Oral Steroids MR NSAIDs Gabapentin PREVIOUS SPINAL SURGERY: Prior surgery 1980s There is no problem list on file for this patient. No past medical history on file. No past surgical history on file. No family history on file. Social History Tobacco Use Smoking status: Every Day Types: Cigarettes Smokeless tobacco: Never Substance Use Topics Alcohol use: Never ALLERGIES Allergen Reactions Atropine-Demerol Rash, Swelling Egg Hives, Unknown, Vomiting Latex Itching, Rash, Swelling, Other: See Comments Meperidine Swelling, Other: See Comments MEDICATIONS: ALPRAZolam (XANAX) 0.5 mg tablet Take 0.5 mg by mouth twice daily as needed. cyclobenzaprine (FLEXERIL) 5 mg tablet Take 5 mg by mouth as needed. gabapentin (NEURONTIN) 100 mg capsule Take 100 mg by mouth three times daily. oxyCODONE-acetaminophen (PERCOCET) 7.5-325 mg tablet Take 1 tablet by mouth every 6 hours as needed. rizatriptan (MAXALT) 10 mg tablet REVIEW OF SYSTEMS: GENERAL: No weight loss or malaise MUSCULOSKELETAL: Negative for joint pain, swelling or muscle pain NEURO: No history of headaches, syncope, paralysis, seizures or tremors Patient Entered Questionnaires Spine Questions 05/13/2022 Pain Location: Upper back/torso Pain Duration: 1-3 months Symptoms from neck/cervical spine: Yes Employment Status: Disabled due to back pain, permanently or temporarily Off work 1 month or more due to back/neck pain: Yes Applied for/receive disability/WC due to low back/neck pain No Involved in law suit/legal claim: No Neck Questionnaires 05/13/2022 Benzel Modified ALEXIS Score 14 (A lower score indicates increased pain and issues.) PROMIS Score Percentiles Physical Health 05/13/2022 Physical Function Percentile 2 Sleep Percentile 10 Fatigue Percentile 50 Pain Interference Percentile 0 PROMIS SOCIAL ROLE SCORE 05/13/2022 Social Role Satisfaction Percentile 1 PROMIS Global Health Scale 05/13/2022 Physical Health Percentile 4 Mental Health Percentile 5 Percentiles provide an indication of how the patient's score ranks in relation to the general population. Higher percentile rankings indicate better function/quality of life. 50th percentile is the average of the general population and indicates half of respondents had a worse score. Depression Screening: PHQ-9 05/13/2022 Score 12 PHQ-9 Self-harm Question 05/13/2022 Thoughts that you would be better off , or of hurting yourself in some way 0 PHQ-9 Self-Harm (Item 9) response options: 0 Not at all 1 Several days 2 More than half the days 3 Nearly every day PHQ-9 Levels: 0-4 No to mild depression 5-9 Mild depression 10-14 Moderate depression 15-19 Moderately severe depression 20-27 Severe depression OBJECTIVE: PHYSICAL EXAM BP 110/78 Pulse 76 Resp 13 Ht 160 cm (5' 3 ) Wt 79.8 kg (176 lb) SpO2 100% BMI 31.18 kg/m GENERAL APPEARANCE: Well nourished, well developed, and no apparent distress. NEURO PSYCH: Patient oriented to person, place, and time. Mood pleasant. Benign affect. MUSCULOSKELETAL VISUAL INSPECTION CERVICAL: WNL THORACIC: WNL LUMBAR: WNL MOTOR: 5/5 in all muscle groups. SENSORY: Normal sensory exam GAIT: Normal. REFLEXES: + hoffmans DATA REVIEW Images independently reviewed with the patient ASSESSMENT/PLAN (M48.02) Spinal stenosis of cervical region (primary encounter diagnosis) Lucille Carcamo has a condition that requires further workup. MRI cervical XR cervical Imaging: Cervical MRI Without Contrast Postop recurring or worsening symptoms Follow up: Following above Ramiro Fernandez MD SIGNATURE: Ramiro Fernandez MD PATIENT NAME: Lucille Carcamo DATE: May 14, 2022 TIME: 8:38 AM PAGER: documented in this encounter [facility] 04-17-2022 Note HNO ID: [id number] Author: Stacy Hwang PA-C Service: ? Author Type: Physician Maintenance Machine Repairer Type: Progress Notes Filed: 04/18/2022 2:43 PM Note Text: Per Triage: Lucille Carcamo is a 46 year old female that requests evaluation of thoracic/lumbar spine. Per review, they have symptoms of Neck and back pain, left arm pain. CMT: Percocet Oral Steroids MR NSAIDs Gabapentin Studies (Reports unless indicated) -XR: Fractured scoliotic Gomez -CT Thoracic and lumbar Disposition: Please schedule with First available deformity surgeon, x-ray scoliosis prior. [facility] 04-17-2022 History of Presen t illness Narrative Per Triage: Lucille Carcamo is a 46 year old female that requests evaluation of thoracic/lumbar spine. Per review, they have symptoms of Neck and back pain, left arm pain. CMT: Percocet Oral Steroids MR NSAIDs Gabapentin Studies (Reports unless indicated) -XR: Fractured scoliotic Gomez -CT Thoracic and lumbar Disposition: Please schedule with First available deformity surgeon, x-ray scoliosis prior. Patient name: Lucille Carcamo Are you being referred by a [facility] or Pain Management Provider at [facility]? Yes If answer is YES please schedule directly with surgeon, triage does not need to be completed. Is this a self-referral No If not, who is the Referring Provider Dr. Fady Abdi Is this a 2nd opinion, have you been offered surgery by another surgeon? No MRI/CT/myelogram within 12 months? Yes If NO , please refer to medical spine or PCP to complete above imaging, triage does not need to be completed If YES, please ask for the name/address of the facility where the MRI/CT/myelogram was completed: CT: [facility] [address] [place] [address] MRI/CT/myelogram viewable in Epic: No If not, please provide [phone] to fax in imaging reports for review. Also, please inform patient to hand carry imaging disc to appointment. XR (spine) within 12 months: Yes If YES, please ask for the name/address of the facility where the XR was completed: [facility] [address] [place] [address] Dr. uW's patients: Have you had previous EMG/Nerve Conduction Study, Ultrasound, or MRI for these same symptoms? If YES, please ask for the name/address of the facility where they were completed: Requested provider (First and Last name): Dr. Brendan Darling Are you interested in a virtual visit if offered? 1. Where are you having symptoms related to this visit? T1-T10 Back pain Yes Leg pain No Arm pain Yes Lt side Neck pain Yes pulling/burning while doing ROM 2. Are you having any of the following symptoms: Difficulty walking No Numbness No Weakness No Trouble using your hands? No 3. Have you had any injections or physical therapy in the last 12 months? No If YES then please ask for the name/address of the facility where the injections and/or physical therapy was completed Have you tried any other kinds of non-surgical treatments in the last 12 months? (For example: NSAIDS, muscle relaxants, analgesics, oral steroids, Chiropractor, Acupuncture): oral steroids, muscle relaxants, NSAIDS, Gabapentin 4. Are you currently taking daily prescribed narcotic medications for your current symptoms (For example Oxycodone, Hydrocodone, Tramadol, Morphine, Other)? Yes Percocet 5. Have you had previous spinal surgery for this same symptoms? Yes If YES please ask for the name of facility/address of where the surgery was completed: 1987: [facility] [address], [place] [address] Additional Comments [phone] documented in this encounter [facility] 04-16-2022 Note HNO ID: [id number] Author: Duc Rubi Service: ? Author Type: ? Type: Progress Notes Filed: 04/18/2022 2:43 PM Note Text: Patient name: Lucille Carcamo Are you being referred by a [facility] or Pain Management Provider at [facility]? Yes If answer is YES please schedule directly with surgeon, triage does not need to be completed. Is this a self-referral No If not, who is the Referring Provider Dr. Fady Abdi Is this a 2nd opinion, have you been offered surgery by another surgeon? No MRI/CT/myelogram within 12 months? Yes If NO , please refer to medical spine or PCP to complete above imaging, triage does not need to be completed If YES,? please ask for the name/address of the facility where the MRI/CT/myelogram was completed: CT: [facility] [address] [place] [address] MRI/CT/myelogram viewable in Epic: No If not, please provide [phone] to fax in imaging reports for review. Also, please inform patient to hand carry imaging disc to appointment. XR (spine) within 12 months: Yes If YES,? please ask for the name/address of the facility where the XR was completed: [facility] [address], [place] [address] Dr. Wu's patients: Have you had previous EMG/Nerve Conduction Study, Ultrasound, or MRI for these same symptoms? If YES,? please ask for the name/address of the facility where they were completed: Requested provider (First and Last name): Dr. Brendan Darling Are you interested in a virtual visit if offered? 1. Where are you having symptoms related to this visit? T1-T10 Back pain Yes Leg pain No Arm pain Yes Lt side Neck pain Yes pulling/burning while doing ROM 2. Are you having any of the following symptoms: Difficulty walking No Numbness No Weakness No Trouble using your hands? No 3. Have you had any injections or physical therapy in the last 12 months? No If YES then please ask for the name/address of the facility where the injections and/or physical therapy was completed Have you tried any other kinds of non-surgical treatments in the last 12 months? (For example: NSAIDS, muscle relaxants, analgesics, oral steroids, Chiropractor, Acupuncture): oral steroids, muscle relaxants, NSAIDS, Gabapentin 4. Are you currently taking daily prescribed narcotic medications for your current symptoms (For example Oxycodone, Hydrocodone, Tramadol, Morphine, Other)? Yes Percocet 5. Have you had previous spinal surgery for this same symptoms? Yes If YES? please ask for the name of facility/address of where the surgery was completed: 1987: [facility] [address], [place] [address] Additional Comments [phone] [facility] Evaluation note No assessment inform ation available [facility] Work Phone: Evaluation note Diagnosis Degeneration of lumbar intervertebral disc- Primary Degeneration of lumbar or lumbosacral intervertebral disc [facility] Spinal stenosis of cervical region- Primary Spinal stenosis in cervical region documented in this encounter [facility] Discharge instructions Additional Instructions Follow-up with your neurosurgeon group for further evaluation regarding a possible broken gomez. We did not see this on a CT scan of your spine. However we are unable to review the x-ray and do not have any prior films. Take the pain medication as prescribed and the steroids as prescribed to help with your symptoms. Avoid any heavy lifting.[facility] Work Phone: Reason for referral (narrative)* Diagnostic Procedure Only (Routine) - Pending Review Specialty Diagnoses / Procedures Referred By Karina ortiz Referred To Contact XR IMAGING Diagnoses Degeneration of lumbar intervertebral disc Procedures XR SCOLIOSIS PA STAND/LAT 2V RADEX ENTIR THRC LMBR CRV SAC SPI W/SKULL 2/3 Stacy Conklin PA-C [address] [facility] [place] [address] Xr Imaging Referral ID Status Reason Start Date Expiration Date Visits Requested Visits Authorized [id number] Pending Review Auto-Generat ed Referral 2 05/18/2023 1 1 [facility] Diagnostic Procedure Only (Routine) - Authorized Specialty Diagnoses / Procedures Referred By Contac t Referred To Contact XR IMAGING Diagnoses Spinal stenosis of cervical region Procedures XR CERV OTHER 4V AP/LAT/FLX/EXT RADEX SPINE CERVICAL 4 OR 5 VIEWS Ramiro Fernandez MD [address] [id number] Xr Imaging Referral ID Status Reason Start Date Expiration Date Visits Requested Visits Authorized [id number] Authorized Auto-Generat ed Referral 2 06/13/2023 1 1 * Diagnostic Procedure Only (Routine) - Authorized Specialty Diagnoses / Procedures Referred By Contac t Referred To Contact MR IMAGING Diagnoses Spinal stenosis of cervical region Procedures MRI CERVICAL SPINE WO IVCON MRI SPINAL CANAL CERVICAL W/O CONTRAST MATRL Ramiro Fernandez MD [address] [place] [address] Mr Imaging Referral ID Status Reason Start Date Expiration Date Visits Requested Visits Authorized [id number] Authorized Auto-Generat ed Referral 05/29/2022 06/22/2022 1 1 [facility] Summary Purpose Family History No Family History Records FoundNo Family History Records FoundNo Family History Records FoundNo Family History Records FoundNo Family History Records FoundNo Family History Records FoundNo Family History Records Found Advance Directives No Advanced Directives Records Found Advance Directive Response Recorded Date/ Time Advance Directives No April 08, 2022 6:26pm Chief Complaint and Reason for Visit Chief Complaint sent over Additional Source Comments INFORMATION SOURCE (unrecogn ized section and content) DATE CREATED AUTHOR 03/15/2020 [facility] DATE CREATED AUTHOR AUTHOR'S ORGANIZ ATION 04/18/2022 [facility] DATE CREATED AUTHOR AUTHOR'S ORGANIZ ATION 04/22/2022 [facility] DATE CREATED AUTHOR AUTHOR'S ORGANIZ ATION 05/30/2022 [facility] DATE CREATED AUTHOR AUTHOR'S ORGANIZ ATION 07/09/2022 [facility] DATE CREATED AUTHOR AUTHOR'S ORGANIZ ATION 10/07/2023 [facility] dical Specialists EPIC DATE CREATED AUTHOR AUTHOR'S ORGANIZ ATION 10/15/2023 Care Teams (unrecognized sec tion and content) Team Status: Inactive Member Role Status Dates Fady Abdi MD Primary Care Provider Active Jack Noel DO Emergency Provider Active Team Status: Active Member Role Status Dates Fady Abdi MD Primary Care Provider Active Goals (unrecognized section and content) Goals may be documented in a n alternate section Source Comments (unrecognize d section and content) In the event this informatio n is protected by the Federal Confidentiality of Alcohol and Drug Abuse Patient Records regulations: The Federal rules restrict any use of the information to criminally investigate or prosecute any alcohol or drug abuse patient.[facility] the event this information is protected by the Federal Confidentiality of Alcohol and Drug Abuse Patient Records regulations: The Federal rules restrict any use of the information to criminally investigate or prosecute any alcohol or drug abuse patient.[facility] the event this information is protected by the Federal Confidentiality of Alcohol and Drug Abuse Patient Records regulations: The Federal rules restrict any use of the information to criminally investigate or prosecute any alcohol or drug abuse patient.[facility] Reason for Visit (unrecogniz ed section and content) Reason Comments New Patient Specialty Diagnoses / Procedures Referred By Contac t Referred To Contact Neurosurgery / SPINE SURGERY Diagnoses Degeneration of lumbar intervertebral disc [facility] imaging/record requested Procedures NEW SPINE SURGICAL TRIAGE Fady Abdi [address] [facility] [address] [place] [address] Ramiro Fernandez MD [address] [place] [address] Referral ID Status Reason Start Date Expiration Date Visits Re quested Visits Authorized [id number] Closed 05/14/2022 06/22/2022 1 1 Reason Comments Results FOR RECORDS PERTAINING TO PATIENTS WHO ARE OR HAVE BEEN ENROLLED IN A CHEMICAL DEPENDENCY/SUBSTANCEABUSE PROGRAM, SOME INFORMATION MAY BE OMITTED. This clinical summary was aggregated from multiple sources. Caution should be exercised in using it in the provision of clinical care. This summary normalizes information from multiple sources, and as a consequence, information in this document may materially change the coding, format and clinical context of patient data. In addition, data may be omitted in some cases. CLINICAL DECISIONS SHOULD BE BASED ON THE PRIMARY CLINICAL RECORDS. [facility]. provides no warranty or guarantee of the accuracy or completeness of information in this document.
--- NOTE | 2023-11-03 13:07 | P.CN_ITS ---
Consult Note: HPI Data of Consult Patient: known to practice within the last 3 years Consult date: 11/03/23 Requesting Physician: Santy Quiros MD Primary Care Provider: LES ABDI Consult Narrative Reason for consult: midback pain Narrative: 48yof who presents for assessment. continues to have intense midback pain. imaging was reviewed, which shows fracture of thoracic rods at t6 area. has completed >6 weeks of provider directed home exercise program, without benefit. percocet, flexeril have been minimally helpful. denies adverse med side effects. cc:: CC: Santy Quiros MD Review of Systems ROS Status of ROS 10 or more systems reviewed and unremark able except as noted in history and below Meds Home Medications and Allergies Home Medications ?Medication ?Instructions ?Recorded ?Confirmed ?Type alprazolam 0.5 mg tablet (Xanax) 0.5 mg PO DAILY 10/13/23 10/13/23 History atorvastatin 10 mg tablet (Lipitor) 10 mg PO DAILY 10/13/23 10/13/23 History cyclobenzaprine 10 mg tablet 10 mg PO QID PRN spasms 10/13/23 10/13/23 History fluconazole 100 mg tablet 100 mg PO DAILY PRN YEAST INFECTION 10/13/23 10/13/23 History (Diflucan) gabapentin 100 mg capsule 100 mg PO TID 10/13/23 10/13/23 History oxycodone-acetaminophen 7.5 mg-325 1 tab PO QID PRN pain 10/13/23 10/13/23 History mg tablet (Endocet) rizatriptan 10 mg tablet (Maxalt) 10 mg PO Q2H PRN migraine headache 10/13/23 10/13/23 History Exam Narrative Exam Narrative: Psych-alert and oriented x 3. Attentive and appropriate, constitutionally normal, displays normal mood and affect per situation.? There are no obvious deficits in memory, reasoning, or intellect.? Skin-no obvious rashes, bruising, erythema noted to the patient's area of pain. Extremities- extremities are warm with minimal edema and palpable pulses. Thoracic- tenderness to palpation noted in the thoracic spine and paraspinal musculature.? Range of motion is slightly diminished with these motions due to pain. Decreased sensation throughout bilateral T6, 7 dermatomal distributions. Coordination remains intact.? Gait remains non-antalgic. Assessment and Plan Assessment and Plan (1) Thoracic radiculopathy: (2) Thoracic back pain: Qualifiers: Chronicity: chronic Back pain laterality: bilateral Qualified Code(s): M54.6 - Pain in thoracic spine; G89.29 - Other chronic pain (3) Myofascial pain: Plan 48yof who presents for assessment. failed conservative measures, as noted. imaging reviewed, as noted. given symptoms and imaging, prudent to attempt bilateral t6-7 tfesi under fluoroscopic guidance. she is in agreement. medications reviewed, no changes. follow up after procedure.
== END 2023-11-03 11:35 | disposition home or self-care (01) ==
LOC: PM 11:35
PROVIDERS: PCP Family Medicine; Visit Provider Anesthesiology
DX: M54.14 Radiculopathy, thoracic region (principal); M54.6 Pain in thoracic spine; G89.29 Other chronic pain; M79.18 Myalgia, other site
CPT/HCPCS: G0463

== ENCOUNTER 2023-11-24 08:01 | Day surgery (SDC) | payer OTHER, SELFPAY ==
--- OUTSIDE RECORDS SUMMARY | 2023-11-24 08:03 | XMS_ITS | CCD ---
Author Organization [facility] Inform ion Partnership [facility] Care Team Providers Care Senior Firewall Engineer Name Role Phone FADY ABDI Admitting Unavailable FADY ABDI Attending Unavailable FADY ABDI Primary Care Unavailable FADY ABDI Consulting Unavailable HONORIO AMOS Consulting Unavailable TAWANA KELLEY Admitting Unavailable TAWANA KELLEY Attending Unavailable TAWANA KELLEY Consulting Unavailable MD Fady Abdi Primary Care Provider DO Jack Noel Emergency Provider Ricardo paz Unavailable Primary Care Provider Unavaildavid e Fady Abdi Primary Care Unavailable Jack Noel Attending Unavailable Jack Noel Admitting Unavailable Unavailable Primary Care Provider Unavailabl e PELLE RAMIRO W Referring Unavailable PELLE, RAMIRO W Referring Unavailable YURI STACY E Referring Unavailable KARLA FERNANDEZINIC Attending Unavailable FADY ABDI Referring Unavailable FADY ABDI Attending Unavailable FADY ABDI Attending Unavailable Ishaan VELAZCO, Santy Longo Attending Unavailable Ishaan VELAZCO, Santy Longo Attending Unavailable Allergies Allergy Classification Reported Allergen(s) Allergy Type Date of Onset Reaction(s) Facility (3 sources) egg extract; Translations: [EGG] Drug Allergy 6 Hives [facility] Repository (3 sources) Latex; Translations: [LATEX] Drug allergy (disorder) 6 Rash [facility] Repository (1 source) Meperidine Drug Allergy 6 [facility] Repository (5 sources) Meperidine; Translations: [meperidine] Drug Allergy 6 Swelling, Other: See Comments [facility] (1 source) egg extract Drug Allergy 2 [facility] Repository (1 source) Latex Drug allergy (disorder) 2 [facility] Repository (2 sources) egg extract Drug Allergy 6 Hives, Unknown, Vomiting [facility] (2 sources) Latex Drug Allergy 6 Itching, Rash, Swelling, Other: See Comments [facility] (3 sources) Atropine-Demerol ; Translations: [ATROPINE-DEMERO L] Drug Allergy 2 Rash, Swelling [facility] Medications Current Medications Medication Drug Class(es) Dates [...] on above: Take 1 tablet by liana th every 6 hours as needed. ALPRAZolam 0.5 [...] Test Name Value Interpretation Reference Range Facility [facility] 06-20-2022 [facility] Telephone (NIQ) LYNNLUCILLE ([id number]) 1975 F Date Time Provider Department 06/20/22 RAMIRO FERNANDEZ During your visit today, we recorded the following information about you: Amber Whelan Slug Press Operator 06/20/2022 3:02 PM Signed Patient calling for MRI AND XR results. Patient informed that it can take 7 business days to review and that someone from the clinical team will call with results once reviewed. call back [phone] Verified imaging and reports were received. Forwarded to team for review. Amber Speed Slug Press Operator Sonja Vargas Cook Helper Preserves 06/26/2022 1:34 PM Signed pt following up on 06/20 message about results. Call back: [phone] Kingston Moya RN 06/26/2022 3:19 PM Signed [...] disc disorder with radiculopathy [M50.10] Order(s):EMG(NEURO/N I) [[id number]] Order #: [id number]: 1 FUTURE Prescriptions as of 07/09/2022 - [...] Encounter Status:Closed by KINGSTON MOYA on 06/26/22 [facility] 05-29-2022 [facility] HNO ID: [id number] Author: Phil Murdock Service: Radiology Author Type: [...] Phil Murdock May 29, 2022 5:50 PM [facility] MRI CERVICAL SPINE WO IVCONo n 05-29-2022 MRI CERVICAL SPINE WO IVCON * * *Final Report* * * DATE OF EXAM: May 29 2022 6:09PM [facility] 0297 - MRI CERVICAL SPINE WO IVCON [...] vertebrae with counting from the craniocervical junction. Seater Grinder: [facility] Transcribe Date/Time: May 29 2022 9:21P Dictated by : ARMEN MELÉNDEZ MD This examination was interpreted and the report reviewed and electronically signed by: ARMEN MELÉNDEZ MD on May 29 2022 9:22PM EST [id number] JENNIFER [facility] XR CERVICAL 4V AP/LAT/FLX/EX Ton 05-29-2022 XR [...] acute osseous findings. Additional findings as described. Seater Grinder: [facility] Transcribe Date/Time: May 30 2022 8:22A Dictated by : DAIN MARTINEZ MD This examination was interpreted and the report reviewed and electronically signed by: DAIN MARTINEZ MD on May 30 2022 8:24AM EST [id number] [facility] 05-14-2022 [facility] Office Visit (SPNSMN) LUCILLE CARCAMO ([id number]) 1975 F Date Time Provider Department 05/14/22 9:10 AM RAMIRO FERNANDEZ SPNSMN During your visit today, we recorded the [...] OBJECTIVE: PHYSICA (more content not included)... Normal [facility] XR SCOLIOSIS 2V PA STAND/LAT on [...] (BETTER VISUALIZED ON OUTSIDE CT SCAN 04/08/2022). Seater Grinder: GEOVANNI Transcribe Date/Time: May 14 2022 8:02A Dictated by : ARMEN DAVIS MD This examination was interpreted and the report reviewed and electronically signed by: ARMEN DAVIS MD on May 14 2022 8:10AM EST [id number] CN Normal [facility] US Pelvic, Transabdominalon 04-17-2022 US Pelvic, [...] by Dom Vasquez on 04/17/2022 1127 Normal [facility] CT lumbar spine wo conon CT lumbar spine wo con [facility] Main [place] [address] [place] [address] CT Scan Report Signed Patient: Lucille Carcamo MR#: [id number] : 1975 Acct:[id number] Age/Sex: 46 / F ADM Date: 04/08/22 Loc: ER Room: Type: REG ER Attending Dr: Copies to: DO Jack Servin DO Ordering Provider: Sandoval Kirby DO Date of Service: 04/08/22 CT/CT lumbar spine wo con: fx gomez? ([id number]) CT/CT thoracic spine wo con: fx gomez? [...] Bacilio Rosas M.D.04/08/2022 6:37 PM Dictation Location: [place] [address] Transcribed By: [facility] 04/08/221836 Dictated By: Bacilio Rosas II, MD 04/08/221820 Signed By: 04/08/221836 Normal [facility] XR Spine Thoracic 2 Views*on 04-08-2022 XR [...] by Dom Vasquez on 04/08/2022 1458 Normal [facility] COVID-19 PCRon 03-14-2020 SARS-CoV-2, MACIEL Not Detected Normal Not Detected [facility] Comment on above: Result Comment: This nucleic acid amplification test was developed and its performance characteristics determined by [employer]. Nucleic acid amplification tests include PCR and [...] assay. Performed By: #### C VDPCR #### [facility] [address] [id number] Rae Goldberg MG MAMM RT DIAG W CADon MG MAMM RT DIAG W CAD Patient: LUCILLE CARCAMO Exam Date: 08/26/2019 : 1975 Gender:F Ordering : DR FADY ABDI M.D. Admission #: [id number] Family : Order #: [id number] CLICK HERE TO VIEW EXAM RADIOLOGY REPORT [...] bladder cancer at age 57. LOCATION: [facility] BREAST COMPOSITION: Heterogeneously dense, which may [...] M.D. on 08/26/2019 at 14:50 Normal [facility] US BREAST RIGHT LIMITEDon US BREAST RIGHT LIMITED Patient: LUCILLE CARCAMO Exam Date: 08/26/2019 : 1975 Gender:F Ordering : DR FADY ABDI M.D. Admission #: [id number] Family : Order #: [id number] CLICK HERE TO VIEW EXAM RADIOLOGY REPORT [...] bladder cancer at age 57. LOCATION: [facility] BREAST COMPOSITION: Heterogeneously dense, which may [...] M.D. on 08/26/2019 at 14:50 Normal [facility] Vital Signs Date Time Vital Sign Value Performing Clinician Faci lity 05-14-2022 08:29-0500 Body height 160 cm Ramiro Fernandez MD Work Phone: [facility] 05-14-2022 08:29-0500 Body weight 79.83 kg Ramiro Fernandez MD Work Phone: [facility] 05-14-2022 08:29-0500 Diastolic blood pressure 78 mm[Hg] Ramiro Fernandez MD Work Phone: [facility] 05-14-2022 08:29-0500 Heart rate 76 /min Ramiro Fernandez MD Work Phone: [facility] 05-14-2022 08:29-0500 Respiratory rate 13 /min Ramiro Fernandez MD Work Phone: [facility] 05-14-2022 08:29-0500 SaO2% (BldA) [Mass fraction] 100 % Ramiro Fernandez MD Work Phone: [facility] 05-14-2022 08:29-0500 Systolic blood pressure 110 mm[Hg] Ramiro Fernandez MD Work Phone: [facility] 04-08-2022 18:47-0400 Diastolic blood pressure 72 mm[Hg] MD Fady Abdi Work Phone: [facility] 04-08-2022 18:47-0400 Heart rate 85 /min MD Fady Abdi Work Phone: [facility] 04-08-2022 18:47-0400 Respiratory rate 18 /min MD Fady Abdi Work Phone: [facility] 04-08-2022 18:47-0400 SaO2% (BldA) [Mass fraction] 98 % MD Fady Abdi Work Phone: [facility] 04-08-2022 18:47-0400 Systolic blood pressure 125 mm[Hg] MD Fady Abdi Work Phone: [facility] 04-08-2022 16:41-0400 Body height 160.02 cm MD Fady Abdi Work Phone: [facility] 04-08-2022 16:41-0400 Body temperature 97.9 [degF] MD Fady Abdi Work Phone: [facility] 04-08-2022 16:41-0400 Body weight 78.3 kg MD Fady Abdi Work Phone: [facility] Encounters Encounter Date Encounter Type Care Provider Facility Start: 11-03-2023 End: 11-04-2023 ambulatory Santy Quiros MD Facility:[facility] Start: 10-13-2023 End: 10-14-2023 ambulatory Santy Quiros MD Facility:[facility] Start: 10-06-2023 End: 10-06-2023 ambulatory FADY ABDI Not Available Start: 06-10-2023 End: 06-10-2023 ambulatory FADY Flores JIN Not Available Start: 06-20-2022 Telephone encounter Ramiro lam MD Work Phone: Neurology Comment on above: Results Start: 05-29-2022 ambulatory RAMIRO FERNANDEZ Facilit y:[facility] Start: 05-14-2022 End: 05-14-2022 ambulatory RAMIRO FERNANDEZ Facility:[facility] Start: 05-14-2022 End: 05-14-2022 Patient encounter procedure Ramiro Fernandez MD Work Phone: [facility] [place] Comment on above: Spinal stenosis of c ervical region (Primary Dx) Start: 04-16-2022 Chart abstracting Brendan Enrique MD Work Phone: Neurology Start: 04-08-2022 End: 04-08-2022 Emergency department patient visit Fady Abdi Facility:[facility] Start: 04-08-2022 End: 04-08-2022 Emergency department patient visit MD Fady Abdi Work Phone: [facility] Start: 03-13-2020 End: 03-13-2020 Patient encounter procedure TAWANA KELLEY Facility:[facility] Start: 08-26-2019 End: 08-27-2019 Patient encounter procedure FADY ABDI Facility: Procedures Date Procedure Procedure Detail Performing Clinician Start: 04-08-2022 Computed tomography of thoracic spine without contrast MD Fady Abdi Work Phone: Start: 04-08-2022 CT of lumbar spine without contrast MD Fady Abdi Work Phone: Plan of Treatment Date Care Activity Detail Author Start: 06-23-2022 DEPRESSION ASSESSMENT DEPRESSION ASS ESSMENT [facility] Start: 02-21-2022 Influenza vaccination INFLUENZA (#1) [facility] Start: 06-23-2021 DEPRESSION ASSESSMENT DEPRESSION ASS ESSMENT [facility] Start: 2019 COLOGUARD (FIT-DNA) COLOGUARD (FIT-D NA) [facility] Start: 2019 Colonoscopy COLONOSCOPY [facility] Start: 2019 COLORECTAL CANCER SCREENING COLORECTAL CANCER SCREENING [facility] Start: [address] COLONOGRAPHY [facility] Start: 2019 DIABETES SCREEN DIABETES SCREEN [facility] Start: 2019 FECAL OCCULT BLOOD FECAL OCCULT BLOO D [facility] Start: 2019 LIPID SCREEN LIPID SCREEN [facility] Start: 2019 SIGMOIDOSCOPY SIGMOIDOSCOPY [facility] Start: 2014 Mammography MAMMOGRAM [facility] Start: 2004 HPV TESTING HPV TESTING [facility] Start: 1995 PAP TESTING PAP TESTING [facility] Start: 1993 Urine microalbumin profile DTAP,TDAP,TD (1 - Tdap) [facility] Start: 1992 HEPATITIS C SCREENING HEPATITIS C SC REENING [facility] Start: 1992 HIV SCREENING HIV SCREENING [facility] Start: 1980 PNEUMOCOCCAL (1 - PCV) PNEUMOCOCCAL (1 - PCV) [facility] Start: 02-06-1975 COVID-19 VACCINE (#1) COVID-19 VACCI NE (#1) [facility] Start: 1975 HEPATITIS B (1 of 3 - 3-dose series) HEPATITIS B (1 of 3 - 3-dose series) [facility] End: 06-13-2023 Mri spinal canal cervical w/o contrast matrl MRI CERVICAL SPINE WO IVCON Radiology Routine Spinal stenosis of cervical region 1 Occurrences starting 05/14/2022 until 06/13/2023 [facility] Work Phone: Comment on above: 1 Occurrences starti ng 05/14/2022 until 06/13/2023 Patient Education Scoliosis (DC) [facility] Work Phone: Patient referral [facility] Work Phone: End: 05-18-2023 Radex entir thrc lmbr crv sac spi w/skull 2/3 vw XR SCOLIOSIS PA STAND/LAT 2V Radiology Routine Degeneration of lumbar intervertebral disc 1 Occurrences starting 04/18/2022 until 05/18/2023 [facility] Work Phone: Comment on above: 1 Occurrences starti ng 04/18/2022 until 05/18/2023 End: 06-13-2023 Radex spine cervical 4 or 5 views XR CERV OTHER 4V AP/LAT/FLX/EXT Radiology Routine Spinal stenosis of cervical region 1 Occurrences starting 05/14/2022 until 06/13/2023 [facility] Work Phone: Comment on above: 1 Occurrences starti ng 05/14/2022 until 06/13/2023 [facility] Payers Date Payer Category Payer Private Health Insurance [id number] 2007 Unknown [employer] PPO OOS [id number] 2007-Present [phone] [address] [place] [address] PPO [id number] 1975 Unknown [id number] 1975 Unknown [id number] 1975 Unknown [id number] 1975 Unknown [id number] 1975 Unknown [id number] 196 1959 Self-pay 1959 Unknown [id number] Unknown [id number] Unknown [id number] Social History Date Type Detail Facility Start: 04-08-2022 Tobacco smoking status NHIS Smoker (finding) [facility] Start: 1975 Sex Assigned At Female F [facility] Tobacco smoking status NHIS Tobacco smoking consumption unknown [facility] Start: 1975 Sex Assigned At Not on file C [facility] Start: 05-14-2022 Tobacco smoking status NHIS Smokes tobacco daily [facility] History of tobacco use Cigarette Smoker [facility] Start: 05-14-2022 Tobacco use and exposure Smokeless tobacco non-user [facility] Start: 05-14-2022 Alcohol intake Lifetime non-d erika (finding) [facility] Start: 05-04-2022 End: 05-14-2022 Exposure to SARS-CoV-2 (event) Not sure [facility] Clinical Notes 04-16-2022 to 06-26-2022 Telephone Encounter - Kingston Moya RN - 06/26/2022 3:18 PM ESTTelephone Encounter - Sonja Vargas Cook Helper Preserves - 06/26/2022 1:33 PM Dawna Fernandez MD [...] on 06/20 message about results. Call back: [phone] Patient calling for MRI & XR results. Patient informed that it can take 7 business days to review and that someone from the clinical team will call with results once reviewed. call back [phone] Verified imaging and reports were received. Forwarded to team for review. Amber Whelan Slug Press Operator documented in this encounter [facility] 05-29-2022 Note HNO ID: [id number] Author: RT Neo(Viv) Service: ? Author Type: Technologist Type: Progress [...] RT Neo(R) May 29, 2022 5:37 PM [facility] 05-14-2022 Note HNO ID: [id number] Author: Ramiro Fernandez MD Service: ? Author [...] pleasant. Benign a (more content not included)... [facility] 05-14-2022 Note HNO ID: [id number] Author: RT Krzysztof(R) Service: ? Author Type: Denitrator Operator Type: Progress Notes Filed: 05/14/2022 7:57 AM [...] IV DATA: Not applicable SIGNED BY: RT Krzysztof(R) May 14, 2022 7:57 AM [facility] 05-14-2022 History of Presen t illness [...] 8:38 AM PAGER: documented in this encounter [facility] 04-17-2022 Note HNO ID: [id number] Author: Stacy Hwang PA-C Service: ? Author Type: Physician English Language Learner Teacher Type: Progress Notes Filed: 04/18/2022 2:43 PM [...] First available deformity surgeon, x-ray scoliosis prior. [facility] 04-17-2022 History of Presen t illness [...] Health Provider or Pain Management Provider at [facility]? Yes If answer is YES please schedule [...] facility where the MRI/CT/myelogram was completed: CT: [facility] [address] [place] [address] MRI/CT/myelogram viewable in Epic: No If not, please provide [phone] to fax in imaging reports for review. Also, please inform patient to hand carry imaging disc to appointment. XR (spine) within 12 months: Yes If YES, please ask for the name/address of the facility where the XR was completed: [address] [address] [address] Wu's patients: Have you had previous [...] of where the surgery was completed: 1987: [facility] [address], [place] [address] Additional Comments [phone] documented in this encounter [facility] 04-16-2022 Note HNO ID: [id number] Author: Duc Rubi Service: ? Author Type: ? Type: Progress Notes Filed: 04/18/2022 2:43 PM Note Text: Patient name: Lucille Carcamo Are you being referred by a [place] for Spine Health Provider or Pain Management Provider at [facility]? Yes If answer is YES please schedule [...] facility where the MRI/CT/myelogram was completed: CT: [facility] [address] [place] [address] MRI/CT/myelogram viewable in Epic: No If not, please provide [phone] to fax in imaging reports for review. Also, please inform patient to hand carry imaging disc to appointment. XR (spine) within 12 months: Yes If YES,? please ask for the name/address of the facility where the XR was completed: [place] [address] [place] [address] Dr. Wu's patients: Have you had previous EMG/Nerve Conduction Study, Ultrasound, or MRI for these same symptoms? If YES,? please ask for the name/address of the facility where they were completed: Requested provider (First and Last name): Dr. Brednan Darling Are you interested in a virtual [...] of where the surgery was completed: 1987: [facility] [address], [place] [address] Additional Comments [phone] [facility] Evaluation note No assessment inform ation available [facility] Work Phone: Evaluation note Diagnosis Degeneration of lumbar intervertebral disc- Primary Degeneration of lumbar or lumbosacral intervertebral disc [facility] Diagnosis Spinal stenosis of cervical region- Primary Spinal stenosis in cervical region documented in this encounter [facility] Discharge instructions Additional Instructions Follow-up with your neurosurgeon group for further evaluation regarding a possible broken gomez. We did not see this on a CT scan of your spine. However we are unable to review the x-ray and do not have any prior films. Take the pain medication as prescribed and the steroids as prescribed to help with your symptoms. Avoid any heavy lifting.[facility] Work Phone: Reason for referral (narrative)* Diagnostic Procedure Only (Routine) - Pending Review Specialty Diagnoses / Procedures Referred By Contac t Referred To Contact XR IMAGING Diagnoses Degeneration of lumbar intervertebral disc Procedures XR SCOLIOSIS PA STAND/LAT 2V RADEX ENTIR THRC LMBR CRV SAC SPI W/SKULL 2/3 Stacy Conklin PA-C [address] [place] [address] Xr Imaging Referral ID Status Reason Start Date Expiration Date Visits Requested Visits Authorized [id number] Pending Review Auto-Generat ed Referral 2 05/18/2023 1 1 [facility] Diagnostic Procedure Only (Routine) - Authorized Specialty Diagnoses / Procedures Referred By Contac t Referred To Contact XR IMAGING Diagnoses Spinal stenosis of cervical region Procedures XR CERV OTHER 4V AP/LAT/FLX/EXT RADEX SPINE CERVICAL 4 OR 5 VIEWS Ramiro Fernandez MD [address] [place] [address] Xr Imaging Referral ID Status Reason Start Date Expiration Date Visits Requested Visits Authorized [id number] Authorized Auto-Generat ed Referral 2 06/13/2023 1 1 * Diagnostic Procedure Only (Routine) - Authorized Specialty Diagnoses / Procedures Referred By Contac t Referred To Contact MR IMAGING Diagnoses Spinal stenosis of cervical region Procedures MRI CERVICAL SPINE WO IVCON MRI SPINAL CANAL CERVICAL W/O CONTRAST MATRL Ramiro Fernandez MD [address] [place] [address] Mr Imaging Referral ID Status Reason Start Date Expiration Date Visits Requested Visits Authorized [id number] Authorized Auto-Generat ed Referral 05/29/2022 06/22/2022 1 1 [facility] Summary Purpose Family History No Family History Records FoundNo Family History Records FoundNo Family History Records FoundNo Family History Records FoundNo Family History Records FoundNo Family History Records FoundNo Family History Records Found Advance Directives No Advanced Directives Records Found Advance Directive Response Recorded Date/ Time Advance Directives No April 08, 2022 6:26pm Chief Complaint and Reason for Visit Chief Complaint Dr sent over Additional Source Comments INFORMATION SOURCE (unrecogn ized section and content) DATE CREATED AUTHOR 03/15/2020 [facility] DATE CREATED AUTHOR AUTHOR'S ORGANIZ ATION 04/18/2022 [facility] Me dical Specialist DATE CREATED AUTHOR AUTHOR'S ORGANIZ ATION 04/22/2022 [facility] DATE CREATED AUTHOR AUTHOR'S ORGANIZ ATION 05/30/2022 [facility] DATE CREATED AUTHOR AUTHOR'S ORGANIZ ATION 07/09/2022 [facility] DATE CREATED AUTHOR AUTHOR'S ORGANIZ ATION 10/07/2023 [facility] Me dical Specialists EPIC DATE CREATED AUTHOR AUTHOR'S ORGANIZ ATION 11/06/2023 [facility] Care Teams (unrecognized sec tion and content) [...] or prosecute any alcohol or drug abuse patient.[facility] the event this information is protected by the Federal Confidentiality of Alcohol and Drug Abuse Patient Records regulations: The Federal rules restrict any use of the information to criminally investigate or prosecute any alcohol or drug abuse patient.[facility] the event this information is protected by the Federal Confidentiality of Alcohol and Drug Abuse Patient Records regulations: The Federal rules restrict any use of the information to criminally investigate or prosecute any alcohol or drug abuse patient.[facility] Reason for Visit (unrecogniz ed section and content) Reason Comments New Patient Specialty Diagnoses / Procedures Referred By Contac t Referred To Contact Neurosurgery / SPINE SURGERY Diagnoses Degeneration of lumbar intervertebral disc [facility] imaging/record requested Procedures NEW SPINE SURGICAL TRIAGE Fady Abdi [address] [facility] [address] [place] [address] Ramiro Fernandez MD [address] [place] [address] Referral ID Status Reason Start Date Expiration Date Visits Re quested Visits Authorized [id number] Closed 05/14/2022 06/22/2022 1 1 Reason Comments [...] BE BASED ON THE PRIMARY CLINICAL RECORDS. RoomActually [facility]. provides no warranty or guarantee of the accuracy or completeness of information in this document.
[2023-11-24 08:12] VITALS: BP 131/87; PULSE 101; TEMP 37.4; O2SAT 94
[2023-11-24 08:51] VITALS: PULSE 90; O2SAT 97
[2023-11-24] MEDS: DEXAMETHASONE SOD PHOS 10 MG/ML VIAL INJ (08:54)
[2023-11-24] MEDS: BUPIVACAINE HCL 0.25% PF 25 MG/10 ML VIAL INJ (08:54)
[2023-11-24] MEDS: 0.9 % SODIUM CHLORIDE 10 ML SYRINGE - SALINE FLUSH INJ (08:54)
[2023-11-24] MEDS: LIDOCAINE HCL 2% PF 100 MG/5 ML VIAL INJ (08:55)
[2023-11-24] MEDS: IOHEXOL 240 MG/ML - 10 ML VIAL INJ (08:55)
[2023-11-24 08:57] VITALS: BP 130/65; BP 146/78; PULSE 93; O2SAT 97
--- NOTE | 2023-11-24 08:58 | W.PM.PROCNOT ---
Date of procedure: 11/24/23 Pre-op diagnosis: Thoracic radiculopathy Post-op diagnosis: same as pre-op Procedure: Procedure: Bilateral T6-7 transforaminal epidural steroid injection Medications: Bupivacaine 0.25% 2cc, lidocaine 2% 1cc, dexamethasone 10mg The patient was seen and examined in the preoperative holding area.? Informed consent was obtained and placed on the chart.? Patient was brought to the medical procedure unit and placed in the prone position where a timeout was completed verifying the correct patient, procedure site, position, and planned special equipment using sterile aseptic technique.? Under direct fluoroscopic visualization a 25-gauge Quincke tipped spinal needle was advanced at level left T6-7 to the designated neural foramen where contrast dye was injected to show adequate spread.? There was no evidence of vascular or adverse uptake.? Epidural spread was appreciated.? The above-mentioned injectate was then placed in a 1.5 mL aliquot preceded by negative aspiration.? The needle was removed. The same procedure, at the same level, was completed on the opposite side. ? Patient was taken to the postprocedural recovery area and monitored for an appropriate length of time before found suitable for discharge in the accompaniment of a responsible adult. Anesthesia: Local Surgeon: Santy Quiros Pathology: none sent Condition: stable Disposition: no change
== END 2023-11-24 09:09 | disposition home or self-care (01) ==
LOC: SURGOUT 08:02
PROVIDERS: PCP Family Medicine; Visit Provider Anesthesiology
DX: M54.14 Radiculopathy, thoracic region (principal)
CPT/HCPCS: 64479; J1100; Q9966

== ENCOUNTER 2023-12-03 15:22 | Outpatient (OUT) | payer OTHER, SELFPAY ==
--- NOTE | 2023-12-03 16:01 | P.CN_ITS ---
Consult Note: HPI Data of Consult Patient: known to practice within the last 3 years Consult date: 11/03/23 Requesting Physician: Mary Mclaughlin NP Primary Care Provider: LES ABDI Consult Narrative Reason for consult: midback pain Narrative: 48yof who presents for assessment. continues to have intense midback pain. imaging was reviewed, which shows fracture of thoracic rods at t6 area. has completed >6 weeks of provider directed home exercise program, without benefit. percocet have been minimally helpful. denies adverse med side effects. Patient recently underwent bilateral C6/7 TFESI with significantly worse pain per patient, now has significant hyperalgesia. Reports she wouldnt have made it out of bed today if it wasnt for her percocet which her PCP manages. Patient cannot carry her purse or wear a bra due to increase in pain and sensitivity. Patient reports severe pain started friday morning, denies fevers chills shortness of breath. Patient has not been taking flexeril. Has not utilized heat or ice. Patient reports 10/10 burning punching pain today. cc:: CC: Mary Mclaughlin NP Review of Systems ROS Status of ROS 10 or more systems reviewed and unremark able except as noted in history and below Musculoskeletal Reports: back pain PFSH PFSH Medical History (Updated 12/03/23 @ 16:09 by Mary Mclaughlin NP) Scoliosis ?M41.9 - Scoliosis, unspecified (ICD-10) Anxiety ?F41.9 - Anxiety disorder, unspecified (ICD-10) Surgical History H/O Spinal surgery ?Z98.890 - Other specified postprocedural states (ICD-10) History of appendectomy ?Z90.49 - Acquired absence of other specified parts of digestive tract (ICD- 10) History of delivery ?Z98.891 - History of uterine scar from previous surgery (ICD-10) History of hysterectomy ?Z90.710 - Acquired absence of both cervix and uterus (ICD-10) Meds Home Medications and Allergies Home Medications ?Medication ?Instructions ?Recorded ?Confirmed ?Type alprazolam 0.5 mg tablet (Xanax) 0.5 mg PO DAILY 10/13/23 11/24/23 History atorvastatin 10 mg tablet (Lipitor) 10 mg PO DAILY 10/13/23 11/24/23 History cyclobenzaprine 10 mg tablet 10 mg PO QID PRN spasms 10/13/23 11/24/23 History fluconazole 100 mg tablet 100 mg PO DAILY PRN YEAST INFECTION 10/13/23 11/24/23 History (Diflucan) gabapentin 100 mg capsule 100 mg PO TID 10/13/23 11/24/23 History oxycodone-acetaminophen 7.5 mg-325 1 tab PO QID PRN pain 10/13/23 11/24/23 History mg tablet (Endocet) rizatriptan 10 mg tablet (Maxalt) 10 mg PO Q2H PRN migraine headache 10/13/23 11/24/23 History diazepam 10 mg tablet (Valium) 10 mg PO ONCE 11/24/23 11/24/23 History Allergies Allergy/AdvReac Type Severity Reaction Status Date / Time latex Allergy Unknown Verified 11/24/23 08:17 meperidine [From Demerol] Allergy Unknown Verified 11/24/23 08:17 eggs Allergy Unknown Uncoded 11/24/23 08:17 Exam Constitutional Documenting provider has reviewed patient's vital signs: yes Common normals: oriented x3, healthy appearing, alert and well nourished General appearance: in distress, anxious and disheveled HENMT Common normals: normocephalic, hearing grossly normal bilaterally and moist oral mucous membranes Head and scalp: normocephalic Eye Common normals: PERRL Pupil: PERRL Neck & C-Spine Common normals: full ROM General: normal visual inspection Chest Common normals: inspection of chest normal Respiratory Common normals: normal respiratory effort, no retractions and no use of accessory muscles Back & Pelvis Thoracic spine/upper back: paraspinal muscle tenderness and paraspinal muscle spasm Thoracic paraspinal muscle spasm: left Left thoracic paraspinal muscle spasm: T4, T5 and T6 Neuro Common normals: oriented x3, CN's II-XII intact bilaterally, moves all extremities, no focal motor deficits, no sensory deficits noted and deep tendon reflexes 2+ bilaterally Sensorium/orientation: alert Motor exam: strength 5/5 throughout and no movement abnormalities noted Psych Common normals: mental status grossly normal, thought process normal, cooperative, affect normal, speech normal and activity/motor behavior normal Speech: normal speech Thought process: normal thought process Results Additional Findings Additional findings: If on a controlled substance or opioids, I have checked an [place] report on this patient and there are no aberrancies noted in the prescribing history.??If on a controlled substance or opioid a drug screen was completed and reviewed within the last year, and if there has not been a drug screen completed we ordered one today to monitor higher risk, state monitored pain medication use. As part of providing excellent, safe, comprehensive care, the following was completed at our patient's visit: 1. A medication reconciliation and review to ensure accurate knowledge of current/active medications, including asking our patients to inform us about any [id number] medications or herbal remedies/nutritional supplements/alternative remedies. 2. A review to specifically ensure our patients have had annual screening for screening for depression, screening for tobacco use, and screening for unhealthy alcohol use. For concerning screenings had a discussion with the patient, provided patient education, and recommended follow-up with primary care provider when appropriate. If patient noted with a risk of falling, they received education on strength, gait, and balance training to prevent future risk of falling. Assessment and Plan Assessment and Plan (1) Thoracic back pain: Qualifiers: Chronicity: chronic Back pain laterality: bilateral Qualified Code(s): M54.6 - Pain in thoracic spine; G89.29 - Other chronic pain (2) Myofascial pain: (3) Thoracic radiculopathy: (4) Hyperalgesia: Plan encouraged to utilize flexeril 10mg QID PRN for myofascial pain and spasms, palpable trigger points noted. patient declining TPIs gabapentin 300 mg HS, increase to BID as tolerated OTC lidocaine patches 12hrs on 12hrs off to affected areas case reviewed with Dr Quiros who recommends patient be referred to [facility] for evaluation and care continue medications through PCP
== END 2023-12-03 15:23 | disposition home or self-care (01) ==
PROVIDERS: PCP Family Medicine; Visit Provider Nurse Practitioner
DX: M54.6 Pain in thoracic spine (principal); G89.29 Other chronic pain; M79.18 Myalgia, other site; R20.8 Other disturbances of skin sensation
CPT/HCPCS: G0463

== ENCOUNTER 2023-12-08 13:48 | Outpatient (OUT) | payer OTHER, SELFPAY ==
--- OUTSIDE RECORDS SUMMARY | 2023-12-08 14:05 | XMS_ITS | CCD ---
Author Organization [facility] Inform ion Partnership [facility] Care Team Providers Care Metal Hardener Name Role Phone FADY ABDI Admitting Unavailable [...] Referring Unavailable YURI STACY E Referring Unavailable YOBANIEKARLARAMIRO Attending Unavailable FADY ABDI Referring Unavailable FADY ABDI Attending Unavailable FADY ABDI Attending Unavailable Ishaan VELAZCO, Radharius Longo Attending Unavailable Donnieitis , Andrius Vytkd Attending Unavailable Gieditis , Andrius Vytkd Attending Unavailable Allergies Allergy Classification Reported Allergen(s) Allergy Type Date of Onset Reaction(s) Facility (3 sources) egg extract; Translations: [EGG] Drug Allergy 6 Hives [facility] Repository (3 sources) Latex; Translations: [LATEX] Drug allergy (disorder) 6 Rash [facility] Repository (1 source) Meperidine Drug Allergy 6 [facility] Repository (5 sources) Meperidine; Translations: [meperidine] Drug Allergy 6 Swelling, Other: See [facility] (1 source) egg extract Drug Allergy 2 [facility] Repository (1 source) Latex Drug allergy (disorder) 2 [facility] Repository (2 sources) egg extract Drug Allergy 6 Hives, Unknown, Vomiting [facility] (2 sources) Latex Drug Allergy 6 Itching, Rash, Swelling, Other: See Comments [facility] (3 sources) Atropine-Demerol ; Translations: [ATROPINE-DEMERO L] Drug Allergy 2 Rash, Swelling [facility] Medications Current Medications Medication Drug Class(es) Dates Sig (Normalized) Sig (Original) predniSONE 5 mg oral tablet (1 source) Start: 04-08-2022 Prednisone Active 0 PO .COMPLEX 36 April 08, 2022 12:00am prednisone 5 mg: [...] Test Name Value Interpretation Reference Range Facility [facility] 06-20-2022 [facility] Telephone (NIQ) LYNNLUCILLE ([id number]) 1975 F Date Time Provider Department 06/20/22 RAMIRO FERNANDEZ During your visit today, we recorded the following information about you: Amber Whelan Crane Service Technician 06/20/2022 3:02 PM Signed Patient calling for MRI AND XR results. Patient informed that it can take 7 business days to review and that someone from the clinical team will call with results once reviewed. call back [phone] Verified imaging and reports were received. Forwarded to team for review. Amber Whelan Crane Service Technician Sonja Vargas Electrostatic Paint Operator 06/26/2022 1:34 PM Signed pt following up on 06/20 message about results. Call back: [phone] Kingston Moya RN 06/26/2022 3:19 PM Signed [...] disc disorder with radiculopathy [M50.10] Order(s):EMG(NEURO/N I) [[id number]] Order #: [id number]: 1 FUTURE Prescriptions as of 07/09/2022 - [...] Encounter Status:Closed by KINGSTON MOYA on 06/26/22 [facility] 05-29-2022 [facility] HNO ID: [id number] Author: Phil Murdock Service: Radiology Author Type: [...] Phil Murdock May 29, 2022 5:50 PM [facility] MRI CERVICAL SPINE WO IVCONo n 05-29-2022 MRI CERVICAL SPINE WO IVCON * * *Final Report* * * DATE OF EXAM: May 29 2022 6:09PM [facility] 0297 - MRI CERVICAL SPINE WO [...] vertebrae with counting from the craniocervical junction. Children'S Nursery Assistant[facility] Transcribe Date/Time: May 29 2022 9:21P Dictated by : ARMEN MELÉNDEZ MD This examination was interpreted and the report reviewed and electronically signed by: ARMEN MELÉNDEZ MD on May 29 2022 9:22PM EST [id number] Normal [facility] XR CERVICAL 4V AP/LAT/FLX/EX Ton 05-29-2022 [...] acute osseous findings. Additional findings as described. Children'S Nursery Assistant: [employer] Transcribe Date/Time: May 30 2022 8:22A Dictated by : DAIN MARTINEZ MD This examination was interpreted and the report reviewed and electronically signed by: DAIN MARTINEZ MD on May 30 2022 8:24AM EST [id number] [facility] 05-14-2022 [facility] Office Visit (SPNSMN) LUCILLE CARCAMO ([id number]) 1975 F Date Time Provider Department 05/14/22 [...] OBJECTIVE: PHYSICA (more content not included)... Normal [facility] XR SCOLIOSIS 2V PA STAND/LAT on [...] (BETTER VISUALIZED ON OUTSIDE CT SCAN 04/08/2022). Children'S Nursery Assistant: GEOVANNI Transcribe Date/Time: May 14 2022 8:02A Dictated by : ARMEN DAVIS MD This examination was interpreted and the report reviewed and electronically signed by: ARMEN DAVIS MD on May 14 2022 8:10AM EST [id number] CN Normal [facility] US Pelvic, Transabdominalon 04-17-2022 US Pelvic, [...] by Dom Vasquez on 04/17/2022 1127 Normal [facility] [place] [address] [place] [address] CT Scan Report Signed Patient: Lucille Carcamo MR#: [id number] : 1975 Acct:[id number] Age/Sex: 46 / F ADM Date: 04/08/22 Loc: ER Room: Type: [facility] ER Attending Dr: Copies to: DO Jack Servin DO Ordering Provider: Sandoval Kirby DO Date of Service: 04/08/22 CT/CT lumbar spine wo con: fx gomez? ([id number]) CT/CT thoracic spine wo con: fx gomez? [...] Bacilio Rosas M.D.04/08/2022 6:37 PM Dictation Location: [place] [address] Transcribed By: [facility] 04/08/221836 Dictated By: Bacilio Rosas II, MD 04/08/221820 Signed By: 04/08/221836 Normal [facility] XR Spine Thoracic 2 Views*on 04-08-2022 XR [...] by Dom Vasquez on 04/08/2022 1458 Normal [facility] Specialist COVID-19 PCRon 03-14-2020 SARS-CoV-2, MACIEL Not Detected Normal Not Detected [facility] Comment on above: Result Comment: This nucleic acid amplification test was developed and its performance characteristics determined by [employer]. Nucleic acid amplification tests include PCR and [...] assay. Performed By: #### C VDPCR #### [facility] [address] [place], [place] [address] Rae Goldberg MG MAMM RT DIAG W CADon MG MAMM RT DIAG W CAD Patient: LUCILLE CARCAMO Exam Date: 08/26/2019 : 1975 Gender:F Ordering : DR FADY ABDI M.D. Admission #: [id number] Family : Order #: [id number] CLICK HERE TO VIEW EXAM RADIOLOGY REPORT [...] bladder cancer at age 57. LOCATION: [facility] BREAST COMPOSITION: Heterogeneously dense, which may [...] M.D. on 08/26/2019 at 14:50 Normal [facility] US BREAST RIGHT LIMITEDon US BREAST RIGHT LIMITED Patient: LUCILLE CARCAMO Exam Date: 08/26/2019 : 1975 Gender:F Ordering : DR FADY ABDI M.D. Admission #: [id number] Family : Order #: [id number] CLICK HERE TO VIEW EXAM RADIOLOGY REPORT PROCEDURE: MAMMOGRAM DIAGNOSTIC DIGITAL WITH COMPUTER AIDED DETECTION, 08/26/2019, 08:59 ULTRASOUND BREAST RIGHT LIMITED, 08/26/2019, 09:02 COMPARISON: MG MAMM SCREEN NORMA W CAD, 01/25/2019. MG MAMM RT DIAG FU, 01/28/2019. INDICATIONS: Non-healing wound right breast Calculator Name [facility] Breast Cancer Risk Assessment Tool 5 Year Breast Cancer Risk 1.00% Lifetime Breast Cancer Risk 9.20% Personal Breast Cancer No Personal Ovarian Cancer No Treatments None Family Cancers Cousin-paternal with breast cancer at age 36; Aunt-maternal with breast cancer at age 58; Father with bladder cancer at age 58. LOCATION: [facility] BREAST COMPOSITION: Heterogeneously dense, which may [...] M.D. on 08/26/2019 at 14:50 Normal [facility] Vital Signs Date Time Vital Sign Value Performing Clinician Marlene cam 05-14-2022 08:29-0500 Body height 160 cm Ramiro Fernandez MD Work Phone: [facility] 05-14-2022 08:29-0500 Body weight 79.83 kg Ramiro Fernandez MD Work Phone: [facility] 05-14-2022 08:29-0500 Diastolic blood pressure 78 mm[Hg] Ramiro Fernandez MD Work Phone: [facility] 05-14-2022 08:29-0500 Heart rate 76 /min Ramiro Fernandez MD Work Phone: [facility] 05-14-2022 08:29-0500 Respiratory rate 13 /min Ramiro Fernandez MD Work Phone: [facility] 05-14-2022 08:29-0500 SaO2% (BldA) [Mass fraction] 100 % Ramiro Fernandez MD Work Phone: [facility] 05-14-2022 08:29-0500 Systolic blood pressure 110 mm[Hg] Ramiro Fernandez MD Work Phone: [facility] 04-08-2022 18:47-0400 Diastolic blood pressure 72 mm[Hg] MD Fady Abdi Work Phone: [facility] 04-08-2022 18:47-0400 Heart rate 85 /min MD Fady Abdi Work Phone: [facility] 04-08-2022 18:47-0400 Respiratory rate 18 /min MD Fady Abdi Work Phone: [facility] 04-08-2022 18:47-0400 SaO2% (BldA) [Mass fraction] 98 % MD Fady Abdi Work Phone: [facility] 04-08-2022 18:47-0400 Systolic blood pressure 125 mm[Hg] MD Fady Abdi Work Phone: [facility] 04-08-2022 16:41-0400 Body height 160.02 cm MD Fady Abdi Work Phone: [facility] 04-08-2022 16:41-0400 Body temperature 97.9 [degF] MD Fady Abdi Work Phone: [facility] 04-08-2022 16:41-0400 Body weight 78.3 kg MD Fady Abdi Work Phone: [facility] Encounters Encounter Date Encounter Type Care Provider Facility Start: 11-24-2023 End: 11-24-2023 ambulatory Santy Quiros MD Facility: [facility] Start: 11-03-2023 End: 11-03-2023 ambulatory Santy Quiros MD Facility:[facility] Start: 10-13-2023 End: 10-13-2023 ambulatory Santy Quiros MD Facility: [facility] Start: 10-06-2023 End: 10-06-2023 ambulatory NICOLETTEEN M JIN Not Available Start: 06-10-2023 End: 06-10-2023 ambulatory RUGEN M JIN Not Available Start: 06-20-2022 Telephone encounter Ramiro lam MD Work Phone: Neurology Comment on above: Results Start: 05-29-2022 ambulatory RAMIRO FERNANDEZ Facilit y:[facility] Start: 05-14-2022 End: 05-14-2022 ambulatory RAMIRO FERNANDEZ Facility:[facility] Start: 05-14-2022 End: 05-14-2022 Patient encounter procedure Ramiro Fernandez MD Work Phone: [facility] [place] Comment on above: Spinal stenosis of c ervical region (Primary Dx) Start: 04-16-2022 Chart abstracting Brendan Enrique MD Work Phone: Neurology Start: 04-08-2022 End: 04-08-2022 Emergency department patient visit Fady Abdi Facility:[facility] Start: 04-08-2022 End: 04-08-2022 Emergency department patient visit MD Fady Abdi Work Phone: [facility] Start: 03-13-2020 End: 03-13-2020 Patient [...] Author Start: 06-23-2022 DEPRESSION ASSESSMENT DEPRESSION ASS [facility] Start: 02-21-2022 Influenza vaccination INFLUENZA (#1) [facility] Start: 06-23-2021 DEPRESSION ASSESSMENT DEPRESSION ASS [facility] Start: 2019 COLOGUARD (FIT-DNA) COLOGUARD (FIT-D NA) [facility] Start: 2019 Colonoscopy COLONOSCOPY [facility] Start: 2019 COLORECTAL CANCER SCREENING COLORECTAL CANCER SCREENING [facility] Start: [address] COLONOGRAPHY [facility] Start: 2019 DIABETES SCREEN DIABETES SCREEN [facility] Start: 2019 FECAL OCCULT BLOOD FECAL OCCULT BLOO D [facility] Start: 2019 LIPID SCREEN LIPID SCREEN [facility] Start: 2019 SIGMOIDOSCOPY SIGMOIDOSCOPY [facility] Start: 2014 Mammography MAMMOGRAM [facility] Start: 2004 HPV TESTING HPV TESTING [facility] Start: 1995 PAP TESTING PAP TESTING [facility] Start: 1993 Urine microalbumin profile DTAP,TDAP,TD (1 - Tdap) [facility] Start: 1992 HEPATITIS C SCREENING HEPATITIS C SC JORDAN [facility] Start: 1992 HIV SCREENING HIV SCREENING [facility] Start: 1980 PNEUMOCOCCAL (1 - PCV) PNEUMOCOCCAL (1 - PCV) [facility] Start: 02-06-1975 COVID-19 VACCINE (#1) COVID-19 VACCI NE (#1) [facility] Start: 1974 HEPATITIS B (1 of 3 - 3-dose series) HEPATITIS B (1 of 3 - 3-dose series) [facility] End: 06-13-2023 Mri spinal canal cervical w/o contrast matrl MRI CERVICAL SPINE WO IVCON Radiology Routine Spinal stenosis of cervical region 1 Occurrences starting 05/14/2022 until 06/13/2023 [facility] Work Phone: Comment on above: 1 Occurrences starti ng 05/14/2022 until 06/13/2023 Patient Education Scoliosis (DC) [facility] Work Phone: Patient referral [facility] Work Phone: End: 05-18-2023 Radex entir thrc lmbr crv sac spi w/skull 2/3 vw XR SCOLIOSIS PA STAND/LAT 2V Radiology Routine Degeneration of lumbar intervertebral disc 1 Occurrences starting 04/18/2022 until 05/18/2023 [facility] Work Phone: Comment on above: 1 Occurrences starti ng 04/18/2022 until 05/18/2023 End: 06-13-2023 Radex spine cervical 4 or 5 views XR CERV OTHER 4V AP/LAT/FLX/EXT Radiology Routine Spinal stenosis of cervical region 1 Occurrences starting 05/14/2022 until 06/13/2023 [facility] Work Phone: Comment on above: 1 Occurrences starti ng 05/14/2022 until 06/13/2023 [facility] c Payers Date Payer Category Payer Private Health Insurance [id number] 2007 Unknown [employer] PPO OOS [id number] 2007-Present [phone] [address] [place] [address] PPO [id number] 1975 Unknown [id number] 1975 Unknown [id number] 1975 Unknown [id number] [id number] 1975 Unknown [id number] 1975 Unknown [id number] 196 1974 Unknown [id number] 196 1959 Self-pay 1960 Unknown [id number] Unknown [id number] Unknown [id number] Social History Date Type Detail Facility Start: 04-08-2022 Tobacco smoking status NHIS Smoker (finding) [facility] Start: 1975 Sex Assigned At Female F [facility] Tobacco smoking status [facility] Tobacco smoking consumption unknown [facility] Start: 1975 Sex Assigned At Not on file [facility] Start: 05-14-2022 Tobacco smoking status [facility] Smokes tobacco daily [facility] History of tobacco use Cigarette Smoker [facility] Start: 05-14-2022 Tobacco use and exposure Smokeless tobacco non-user [facility] Start: 05-14-2022 Alcohol intake Lifetime non-d erika (finding) [facility] Start: 05-04-2022 End: 05-14-2022 Exposure to SARS-CoV-2 (event) Not sure [facility] Clinical Notes 04-16-2022 to 06-26-2022 Telephone Encounter - Kingston Moya RN - 06/26/2022 3:18 PM ESTTelephone Encounter - Sonja Vargas Electrostatic Paint Operator - 06/26/2022 1:33 PM Dawna Fernandez MD [...] on 06/20 message about results. Call back: [phone] Patient calling for MRI & XR results. Patient informed that it can take 7 business days to review and that someone from the clinical team will call with results once reviewed. call back [phone] Verified imaging and reports were received. Forwarded to team for review. Amber Whelan Crane Service Technician documented in this encounter [facility] 05-29-2022 Note HNO ID: [id number] Author: RT Neo(R) Service: ? Author Type: [...] RT Neo(R) May 29, 2022 5:37 PM [facility] 05-14-2022 Note HNO ID: [id number] Author: Ramiro Fernandez MD Service: ? Author [...] pleasant. Benign a (more content not included)... [facility] 05-14-2022 Note HNO ID: [id number] Author: RT Krzysztof(R) Service: ? Author Type: Supervisor Mirror Fabrication Type: Progress Notes Filed: 05/14/2022 7:57 AM [...] RT Krzysztof(R) May 14, 2022 7:57 AM [facility] 05-14-2022 History of Presen t illness [...] 8:38 AM PAGER: documented in this encounter [facility] 04-17-2022 Note HNO ID: [id number] Author: Stacy Hwang PA-C Service: ? Author Type: Physician Wired Sweatband Cutter Type: Progress Notes Filed: 04/18/2022 2:43 PM [...] First available deformity surgeon, x-ray scoliosis prior. [facility] 04-17-2022 History of Presen t illness [...] Health Provider or Pain Management Provider at [facility]? Yes If answer is YES please schedule [...] facility where the MRI/CT/myelogram was completed: CT: [facility] [address], [place] [address] MRI/CT/myelogram viewable in Epic: No If not, please provide [phone] to fax in imaging reports for review. Also, please inform patient to hand carry imaging disc to appointment. XR (spine) within 12 months: Yes If YES, please ask for the name/address of the facility where the XR was completed: [facility] [address] [place] [address] Dr. Wu's patients: Have you had previous [...] of where the surgery was completed: 1987: [facility] [address], [place] [address] Additional Comments [phone] documented in this encounter [facility] 04-16-2022 Note HNO ID: [id number] Author: Duc Rubi Service: ? Author Type: ? Type: Progress Notes Filed: 04/18/2022 2:43 PM Note Text: Patient name: Lucille Carcamo Are you being referred by a Shock for Spine Health Provider or Pain Management Provider at [facility]? Yes If answer is YES please schedule [...] facility where the MRI/CT/myelogram was completed: CT: [facility] [address] [place] [address] MRI/CT/myelogram viewable in Epic: No If not, please provide [phone] to fax in imaging reports for review. Also, please inform patient to hand carry imaging disc to appointment. XR (spine) within 12 months: Yes If YES,? please ask for the name/address of the facility where the XR was completed: [facility] [address], [place] [address] Dr. Wu's patients: Have you had previous [...] of where the surgery was completed: 1987: [facility] [address], [place] [address] Additional Comments [phone] [facility] Evaluation note No assessment inform ation [facility] Work Phone: Evaluation note Diagnosis Degeneration of lumbar intervertebral disc- Primary Degeneration of lumbar or lumbosacral intervertebral disc documented [facility] Diagnosis Spinal stenosis of cervical region- Primary Spinal stenosis in cervical region documented in this encounter [facility] Discharge instructions Additional Instructions Follow-up with your neurosurgeon group for further evaluation regarding a possible broken gomez. We did not see this on a CT scan of your spine. However we are unable to review the x-ray and do not have any prior films. Take the pain medication as prescribed and the steroids as prescribed to help with your symptoms. Avoid any heavy lifting.[facility] Work Phone: Reason for referral (narrative)* Diagnostic Procedure Only (Routine) - Pending Review Specialty Diagnoses / Procedures Referred By Contac t Referred To Contact XR IMAGING Diagnoses Degeneration of lumbar intervertebral disc Procedures XR SCOLIOSIS PA STAND/LAT 2V RADEX ENTIR THRC LMBR CRV SAC SPI W/SKULL 2/3 VW Stacy Hwang PA-C [address] [place] [id number] Xr Imaging Referral ID Status Reason Start Date Expiration Date Visits Requested Visits Authorized [id number] Pending Review Auto-Generat ed Referral 2 05/18/2023 1 1 [facility] for referral (narrative)* Diagnostic Procedure Only (Routine) - Authorized Specialty Diagnoses / Procedures Referred By Contac t Referred To Contact XR IMAGING Diagnoses Spinal stenosis of cervical region Procedures XR CERV OTHER 4V AP/LAT/FLX/EXT RADEX SPINE CERVICAL 4 OR 5 VIEWS Ramiro Fernandez [place] [address] [place] [address] Xr Imaging Referral ID Status Reason Start Date Expiration Date Visits Requested Visits Authorized [id number] Authorized Auto-Generat ed Referral 2 06/13/2023 1 1 * Diagnostic Procedure Only (Routine) - Authorized Specialty Diagnoses / Procedures Referred By Contac t Referred To Contact MR IMAGING Diagnoses Spinal stenosis of cervical region Procedures MRI CERVICAL SPINE WO IVCON MRI SPINAL CANAL CERVICAL W/O CONTRAST MATRL Ramiro Fernandez MD [address] [place] [address] Mr Imaging Referral ID Status Reason Start Date Expiration Date Visits Requested Visits Authorized [id number] Authorized Auto-Generat ed Referral 05/29/2022 06/22/2022 1 1 [facility] Summary Purpose Family History No Family History [...] and content) DATE CREATED AUTHOR 03/15/2020 [facility] DATE CREATED AUTHOR AUTHOR'S ORGANIZ ATION 04/18/2022 [facility] dical Specialist DATE CREATED AUTHOR AUTHOR'S ORGANIZ ATION 04/22/2022 [facility] DATE CREATED AUTHOR AUTHOR'S ORGANIZ ATION 05/30/2022 [facility] DATE CREATED AUTHOR AUTHOR'S ORGANIZ ATION 07/09/2022 [facility] DATE CREATED AUTHOR AUTHOR'S ORGANIZ ATION 10/07/2023 [facility] dical Specialists EPIC DATE CREATED AUTHOR AUTHOR'S ORGANIZ ATION 12/02/2023 [facility] Care Teams (unrecognized sec tion and [...] or prosecute any alcohol or drug abuse patient.[facility] the event this information is protected by the Federal Confidentiality of Alcohol and Drug Abuse Patient Records regulations: The Federal rules restrict any use of the information to criminally investigate or prosecute any alcohol or drug abuse patient.[facility] the event this information is protected by the Federal Confidentiality of Alcohol and Drug Abuse Patient Records regulations: The Federal rules restrict any use of the information to criminally investigate or prosecute any alcohol or drug abuse patient.[facility] Reason for Visit (unrecogniz ed section and content) Reason Comments New Patient Specialty Diagnoses / Procedures Referred By Karina ortiz Referred To Contact Neurosurgery / SPINE SURGERY Diagnoses Degeneration of lumbar intervertebral disc [facility] imaging/record requested Procedures NEW SPINE SURGICAL TRIAGE Fady Abdi [address] [facility] [address] [place] [address] Ramiro Fernandez MD [address] [place] [address] Referral ID Status Reason Start Date Expiration Date Visits Re quested Visits Authorized [id number] Closed 05/14/2022 06/22/2022 1 1 Reason Comments [...] BE BASED ON THE PRIMARY CLINICAL RECORDS. [facility]. provides no warranty or guarantee of the accuracy or completeness of information in this document.
--- NOTE | 2023-12-08 14:18 | PM.CN ---
Consult Note: HPI Data of Consult Patient: known to practice within the last 3 years Consult date: 12/08/23 Requesting Physician: Santy Quiros MD Primary Care Provider: LES ABDI Consult Narrative Reason for consult: midback pain Narrative: 48yof who presents for assessment. continues to have significant midback pain. states that this is debilitating and nothing makes better. uses percocet. gabapentin recently started 300mg qhs, but did not notice much difference. denies adverse med side effects. cc:: CC: Santy Quiros MD Review of Systems ROS Status of ROS 10 or more systems reviewed and unremarkable except as noted in history and below [facility] Medical History (Updated 12/03/23 @ 16:09 by Mary Mclaughlin NP) Scoliosis ?M41.9 - Scoliosis, unspecified (ICD-10) Anxiety ?F41.9 - Anxiety disorder, unspecified (ICD-10) Surgical History H/O Spinal surgery ?Z98.890 - Other specified postprocedural states (ICD-10) History of appendectomy ?Z90.49 - Acquired absence of other specified parts of digestive tract (ICD-10) History of delivery ?Z98.891 - History of uterine scar from previous surgery (ICD-10) History of hysterectomy ?Z90.710 - Acquired absence of both cervix and uterus (ICD-10) Meds Home Medications and Allergies Home Medications ?Medication ?Instructions ?Recorded ?Confirmed ?Type alprazolam 0.5 mg tablet (Xanax) 0.5 mg PO DAILY 10/13/23 11/24/23 History atorvastatin 10 mg tablet (Lipitor) 10 mg PO DAILY 10/13/23 11/24/23 History cyclobenzaprine 10 mg tablet 10 mg PO QID PRN spasms 10/13/23 11/24/23 History fluconazole 100 mg tablet 100 mg PO DAILY PRN YEAST INFECTION 10/13/23 11/24/23 History (Diflucan) gabapentin 100 mg capsule 100 mg PO TID 10/13/23 11/24/23 History oxycodone-acetaminophen 7.5 mg-325 1 tab PO QID PRN pain 10/13/23 11/24/23 History mg tablet (Endocet) rizatriptan 10 mg tablet (Maxalt) 10 mg PO Q2H PRN migraine headache 10/13/23 11/24/23 History diazepam 10 mg tablet (Valium) 10 mg PO ONCE 11/24/23 11/24/23 History gabapentin 300 mg capsule 300 mg PO BID #14 caps 12/03/23 Rx lidocaine 5 % topical patch 1 patch topical DAILY #30 ea 12/03/23 Rx Allergies Allergy/AdvReac Type Severity Reaction Status Date / Time latex Allergy Unknown Verified 11/24/23 08:17 meperidine [From Demerol] Allergy Unknown Verified 11/24/23 08:17 eggs Allergy Unknown Uncoded 11/24/23 08:17 Exam Narrative Exam Narrative: Psych-alert and oriented x 3. Attentive and appropriate, constitutionally normal, displays normal mood and affect per situation.? There are no obvious deficits in memory, reasoning, or intellect.? Skin-no obvious rashes, bruising, erythema noted to the patient's area of pain. Extremities- extremities are warm with minimal edema and palpable pulses. Thoracic - tenderness to palpation noted in the thoracic spine and paraspinal musculature.? Pain is elicited with extension, and lateral rotation of the thoracic spine. Range of motion is slightly diminished with these motions due to pain. Coordination remains intact.? Gait remains non-antalgic. Assessment and Plan Assessment and Plan (1) Thoracic back pain: Qualifiers: Chronicity: chronic Back pain laterality: bilateral Qualified Code(s): M54.6 - Pain in thoracic spine; G89.29 - Other chronic pain Plan 48yof who presents for assessment. endorses persistence significant midback pain. thoracic tfesi did not provide any benefit. states that percocet helps, but she also has script for xanax, so not willing to take this over. discussed that she would likely benefit from eval at [facility] to discuss other options. meds reviewed. will increase gabapentin to 300mg tid. will have her discontinue flexeril since not helpful. follow up in 6 months.
== END 2023-12-08 13:49 | disposition home or self-care (01) ==
LOC: PM 13:48
PROVIDERS: PCP Family Medicine; Visit Provider Anesthesiology
DX: M54.6 Pain in thoracic spine (principal); G89.29 Other chronic pain
CPT/HCPCS: G0463